=== PATIENT | female | born 1990 | race African-American/Black ===

== ENCOUNTER 2023-03-05 20:06 | Emergency (ER) | payer SELFPAY ==
[2023-03-05 20:09] VITALS: BP 142/89; PULSE 91; RESP 18; TEMP 36.6; O2SAT 97; BMI 34.2
--- NOTE | 2023-03-05 20:39 | ED.GENADULT ---
[facility] - General Adult General Date Seen: 03/05/23 Chief complaint: Abdominal Pain Stated complaint: lower abdomen pain Time Seen by Provider: 03/05/23 20:21 Source: patient Mode of arrival: ambulatory Limitations: no limitations History of Present Illness HPI narrative: Patient is a 32-year-old woman, new to our system who presents for evaluation of right-sided abdominal pain which has been present for the past almost week or so. She says a number of years ago she had problems with consistent nausea, ultimately was diagnosed with what sounds like H pylori treated for the out of the nausea resolved and she has been fine since then. Over the weekend she says she had pretty significant right lower abdominal pain associated with nausea no vomiting, no urinary symptoms, fever, constipation or diarrhea. She said the pain improved a little bit after the weekend, but has not entirely resolved. Appetite has been normal. She does not get regular menses, last 1 was over 90 days ago but this is not unusual for her. She said she had a loss in May and has not been significantly sexually active since then so she is not particularly concerned about , did not do a test at home. Denies abdominal surgeries. General health otherwise good. Does not smoke or drink. Related Data Home Medications Medication Instructions Recorded Confirmed No Known Home Medications 03/05/23 03/05/23 Allergies Allergy/AdvReac Type Severity Reaction Status Date / Time No Known Drug Allergies Allergy Verified 03/05/23 20:16 Review of Systems Status of ROS: Reports: 10 or more systems reviewed and unremarkable except as noted in History and below Exam Narrative: Exam Narrative: Vital signs as noted above. In general, an alert, well-appearing patient. Head: Normocephalic, atraumatic. Eyes: Pupils are equal reactive. Extraocular movements are full. Conjunctivae are normal. ENT: Mucous membranes are moist. Neck: Supple without lymphadenopathy. Heart: Regular rate and rhythm. No murmur or rub. Lungs: Clear bilaterally. No increased work of breathing, crackles or wheezes. Abdomen: Soft and nondistended. Mild right lower abdominal tenderness without rebound guarding or rigidity. Extremities: Well perfused. No edema. No calf tenderness. Pulses intact. Neurologic: Patient is alert and oriented to person and place. Speech is fluent. Face is symmetric. Moves all extremities equally. Affect: Normal. Skin: Warm and dry. Well perfused. Const: Vital Signs, click to edit/add: Vital Signs - 24 hr 03/05/23 20:09 Temperature 97.8 F Pulse Rate [Pulse Oximeter] 91 Respiratory Rate 18 Blood Pressure [Ri ght Upper Arm] 142/89 H Pulse Oximetry 97 Oxygen Delivery Me thod Room Air Documenting provider has reviewed patient's vital signs: yes Course Course ED Course: Considering duration of symptoms, I think it makes most sense to start with some labs, urine, rule out . Surgical causes such as appendicitis are not entirely ruled out although thought to be less likely overall. Labs notable for normal white blood cell count and hemoglobin, normal CRP, normal metabolic panel. LFTs normal. Urinalysis was negative, test was negative. CT scan was ordered to rule out unlikely possibilities of appendicitis, gallbladder disease, ordered to evaluate for possible ovarian pathology such as cyst. This is read by Radiology as follows:IMPRESSION: No acute intra-abdominal/pelvic abnormality, including appendicitis as questioned. Tiny right corpus luteal cyst which could be a source of pain. I discussed all these findings with the patient. At this time, etiology of pain is not entirely known although may be related to this ovarian cyst if it is currently involuting. No evidence of appendicitis, cholecystitis, kidney stone, inflammatory bowel disease, colitis or other abnormalities. She would like to have some Zofran at home for nausea. Would recommend primary care follow-up next week for recheck. Return at any time for acute worsening or new symptoms such as fever or vomiting. Vital Signs Vital signs: Initial Vital Signs Temperature 97.8 F 03/05/23 20:09 Temperature Source Temporal Artery Scan 03/05/23 20:09 Pulse Rate 91 03/05/23 20:09 Respiratory Rate 18 03/05/23 20:09 Blood Pressure 142/89 H 03/05/23 20:09 Blood Pressure Mean 106 H 03/05/23 20:09 Pulse Oximetry 97 03/05/23 20:09 Oxygen Delivery Method Room Air 03/05/23 20:09 Vital Signs Temperature 97.8 F 03/05/23 20:09 Pulse Rate 91 03/05/23 20:09 Respiratory Rate 18 03/05/23 20:09 Blood Pressure 142/89 H 03/05/23 20:09 Pulse Oximetry 97 03/05/23 20:09 Oxygen Delivery Method Room Air 03/05/23 20:09 Temperature 97.8 F 03/05/23 20:09 Pulse Rate 91 03/05/23 20:09 Respiratory Rate 18 03/05/23 20:09 Blood Pressure 142/89 H 03/05/23 20:09 Pulse Oximetry 97 03/05/23 20:09 Oxygen Delivery Method Room Air 03/05/23 20:09 Medical Decision Making Lab Data Labs: Lab Results 03/05/23 03/05/23 Range/Units 20:45 20:52 WBC 6.48 (4.50-11.00) K/uL RBC 4.32 (4.00-5.20) m/uL Hgb 12.5 (12.0-16.0) gm/dL Hct 37.4 (33.0-51.0) % MCV 87 (80-100) fL MCH 29 (26-34) pg MCHC 33 (32-36) gm/dL RDW Coeff of [place] 13.6 (11.5-15.5) % Plt Count 263 (140-440) K/uL Neut % (Auto) 57.1 (42.0-72.0) % Lymph % (Auto) 34.3 (20-44) % [place] % (Auto) 7.1 (0.0-11.0) % Eos % (Auto) 0.8 (0.0-7.0) % Baso % (Auto) 0.5 (0.0-3.0) % Neut # (Auto) 3.71 (1.7-7.0) K/uL Lymph # (Auto) 2.22 (0.90-2.90) K/uL [place] # (Auto) 0.50 (0.00-0.90) K/UL Eos # (Auto) 0.05 (0.00-0.50) K/uL Baso # (Auto) 0.03 (0.00-0.30) K/uL Abs Immat Gran (auto) 0.01 (0.00-0.30) K/uL Imm/Tot Granulo (auto) 0.2 % Sodium 138 (135-149) mmol/L Potassium 4.0 (3.6-5.1) mmol/L Chloride 108 (96-114) mmol/L Carbon Dioxide 22 (20-32) mmol/L Anion Gap 8 (7-15) mEq/L BUN 14 (5-24) mg/dL Creatinine 0.7 (0.5-1.5) mg/dL Estimated Creat Clear 91.25 Estimated GFR 118 ml/min Glucose 96 (60-115) mg/dL Calcium 9.2 (8.4-10.6) mg/dL Total Bilirubin 0.3 (0.1-1.5) mg/dL Direct Bilirubin 0.0 (0.0-0.5) mg/dL AST 22 (12-35) U/L ALT 20 (4-35) U/L Alkaline Phosphatase 53 (40-150) U/L C-Reactive Protein 0.7 (0.5-1.0) mg/dL Total Protein 7.5 (6.0-8.3) g/dL Albumin 4.3 (3.3-5.0) g/dL Urine Color Dark yellow (Yellow) Urine Appearance Clear (Clear) Urine pH 5.5 (5.0-8.5) Ur Specific [place] >= 1.030 (1.000-1.030) Urine Protein Negative (Negative) Urine Glucose (UA) Negative (Negative) Urine Ketones Negative (Negative) Urine Blood Negative (Negative) Urine Nitrite Negative (Negative) Urine Bilirubin Negative (Negative) Urine Urobilinogen 0.2 (0.2-1.0) Ur Leukocyte Esterase Negative (Negative) Urine RBC 0-2 (0-2) Urine WBC 0-2 (0-5) Ur Squamous Epith Cells Few (None-Few) Urine Bacteria None (None) Urine Mucus Few A (None) Urine HCG, Qual Negative (Negative) Discharge Plan Discharge Clinical Impression: Abdominal pain, Cyst of right ovary Patient Disposition: Home, Self-Care Condition: Stable Instructions: Ovarian Cyst (ED), Abdominal Pain (ED) Additional Instructions: Ibuprofen and/or Tylenol if needed. Primary care follow-up next week for recheck, to schedule. Return to the ER at any time for acute worsening, severe pain, fevers, vomiting or other significant changes. Zofran if needed for nausea. Prescriptions: No Action No Known Home Medications Follow Up/Referrals: Provider,Not a Local [Primary Care Provider] - Stand Alone Forms: [employer] Info Instructions
[2023-03-05 20:51] LABS: Appearance Urine Clear (Clear); Bilirubin Urine Negative (Negative); Blood Urine Negative (Negative); Color Urine Dark yellow (Yellow); Glucose Urine Negative (Negative); Ketones Urine Negative (Negative); Leukocyte Esterase Urine Negative (Negative); Nitrite Urine Negative (Negative); Protein Urine Negative (Negative); Specific Gravity Urine >= 1.030 (1.000-1.030); Urobilinogen Urine 0.2 (0.2-1.0); pH Urine 5.5 (5.0-8.5)
[2023-03-05 20:59] LABS: RBC Urine 0-2 (0-2); Squamous Epithelial Cell Urine Few (None-Few); WBC Urine 0-2 (0-5)
[2023-03-05 20:59] LABS: Basophils Absolute Auto 0.03 K/uL (0.00-0.30); Basophils Percent Auto 0.5 % (0.0-3.0); Eosinophils Absolute Auto 0.05 K/uL (0.00-0.50); Eosinophils Percent Auto 0.8 % (0.0-7.0); Hematocrit 37.4 % (33.0-51.0); Hemoglobin* 12.5 gm/dL (12.0-16.0); Immature Granulocytes Abs Auto 0.01 K/uL (0.00-0.30); Immature Granulocytes Pct Auto 0.2 %; Lymphocytes Absolute Auto 2.22 K/uL (0.90-2.90); Lymphocytes Percent Auto 34.3 % (20-44); Mean Corpuscular HGB Conc 33 gm/dL (32-36); Mean Corpuscular Hemoglobin 29 pg (26-34); Mean Corpuscular Volume 87 fL (80-100); Monocytes Percent Auto 7.1 % (0.0-11.0); Neutrophils Absolute Auto 3.71 K/uL (1.7-7.0); Neutrophils Percent Auto 57.1 % (42.0-72.0); Platelet Count* 263 K/uL (140-440); RDW Coefficient of Variation % 13.6 % (11.5-15.5); Red Blood Count 4.32 m/uL (4.00-5.20); White Blood Count* 6.48 K/uL (4.50-11.00)
[2023-03-05 21:00] LABS: Mucus Urine Few
[2023-03-05 21:00] LABS: Slide Review Reflex No
[2023-03-05 21:14] LABS: Chloride* 108 mmol/L (96-114)
[2023-03-05 21:14] LABS: Ur HCG Qualitative* Negative (Negative)
[2023-03-05 21:15] LABS: Albumin* 4.3 g/dL (3.3-5.0); Sodium* 138 mmol/L (135-149)
[2023-03-05 21:17] LABS: Creatinine* 0.7 mg/dL (0.5-1.5); Est. Creatinine Clearance* 91.25; Estimated Glomerular Filt Rate 118 ml/min
[2023-03-05 21:18] LABS: Alanine Aminotransferase* 20 U/L (4-35); Alkaline Phosphatase* 53 U/L (40-150); Anion Gap 8 mEq/L (7-15); Aspartate Amino Transferase* 22 U/L (12-35); Bilirubin Total* 0.3 mg/dL (0.1-1.5); Blood Urea Nitrogen* 14 mg/dL (5-24); Carbon Dioxide* 22 mmol/L (20-32); Glucose* 96 mg/dL (60-115); Total Protein* 7.5 g/dL (6.0-8.3)
[2023-03-05 21:19] LABS: Calcium* 9.2 mg/dL (8.4-10.6)
[2023-03-05 21:21] LABS: C Reactive Protein* 0.7 mg/dL (0.5-1.0)
--- NOTE | 2023-03-05 21:26 | CRLHL7_ITS ---
For Patients: As a result of the Century Cures Act, medical imaging exams and procedure reports are released immediately into your electronic medical record. You may view this report before your referring provider. If you have questions, please contact your health care provider. INDICATION: Right lower quadrant pain x1 week. TECHNIQUE: CT abdomen and pelvis acquired with 92 cc Isovue 370 IV contrast. COMPARISON: None. FINDINGS: Lower chest: Unremarkable. Liver: Unremarkable. Normal in size and attenuation. No suspicious masses. Gallbladder and bile ducts: Unremarkable. No stones or inflammation. No biliary dilatation. Pancreas: Unremarkable. No mass or inflammation. Spleen: Unremarkable. Normal in size. No masses. Adrenal glands: Unremarkable. No nodules. Kidneys: Unremarkable. No suspicious masses, stones, or hydronephrosis. GI tract: Unremarkable. Normal in caliber. No sign of mass or inflammation. Normal appendix. Vasculature: Abdominal aorta is normal in caliber. Mesenteric arteries are patent. Lymph nodes: No lymphadenopathy. Peritoneum/Abdominal Wall: Unremarkable. No sign of mass or infiltration. No free air or significant free fluid. Pelvis: Incidental tiny right corpus luteal cyst. Bones: Unremarkable for age. IMPRESSION: No acute intra-abdominal/pelvic abnormality, including appendicitis as questioned. Tiny right corpus luteal cyst which could be a source of pain. Please note that all CT scans at this facility use dose modulation, iterative reconstruction, and/or weight-based dosing when appropriate to reduce radiation dose to as low as reasonably achievable. Dictated by Keyur Valle MD @ 03/05/2023 10:24:06 PM (Electronically Signed)
[2023-03-05 22:57] VITALS: BP 140/90; PULSE 88; RESP 16; TEMP 36.6; O2SAT 97
== END 2023-03-05 23:02 | disposition home or self-care (01) ==
PROVIDERS: Emergency Provider Emergency Medicine
DX: R10.9 Unspecified abdominal pain (principal); N83.291 Other ovarian cyst, right side
CPT/HCPCS: 36415; 74177; 80048; 80076; 81001; 81025; 85025; 86140; 99284; Q9967

== ENCOUNTER 2023-06-24 20:35 | Emergency (ER) | payer OTHER, SELFPAY ==
--- NOTE | 2023-06-24 20:51 | CRLHL7_ITS ---
For Patients: As a result of the Cures Act, medical imaging exams and procedure reports are released immediately into your electronic medical record. You may view this report before your referring provider. If you have questions, please contact your health care provider. INDICATION: Right-sided chest pain, trauma TECHNIQUE: Chest radiographs, two views. COMPARISON: None. FINDINGS: Lines/Tubes/Devices: None. Mediastinum: Normal cardiac silhouette. Lungs: No focal consolidation. Airways: The trachea remains midline. Pleura: No pleural effusions or pneumothorax. Bones: No acute osseous abnormalities. Upper Abdomen: Unremarkable. IMPRESSION: No acute cardiopulmonary process. No acute displaced rib fractures, pleural effusions or pneumothorax. Dictated by Alan Caballero MD @ 06/24/2023 9:50:05 PM (Electronically Signed)
[2023-06-24 20:52] VITALS: BP 120/73; PULSE 79; RESP 20; TEMP 36.6; O2SAT 98; BMI 32.9
--- NOTE | 2023-06-24 21:42 | ED.GENADULT ---
HPI - General Adult General Chief complaint: Rib Pain Stated complaint: Hit in ribs by machine at work Time Seen by Provider: 06/24/23 21:17 History of Present Illness HPI narrative: This 33-year-old female comes in reporting an injury that occurred at work earlier today. She states that there was a tube that swelling out from a machine and hit her in the right anterior lower ribs. She states that she has some discomfort when taking a deep breath and with certain movements. Related Data Home Medications Medication Instructions Recorded Confirmed No Known Home Medications 03/05/23 03/05/23 Allergies Allergy/AdvReac Type Severity Reaction Status Date / Time No Known Drug Allergies Allergy Verified 03/05/23 20:16 Review of Systems Status of ROS: Reports: 10 or more systems reviewed and unremarkable except as noted in History and below Narrative: Constitutional: No fevers, no weight gain or loss. Eyes: No discharge. No vision changes. HENT: No congestion, no sore throat, no ear pain. Cardiovascular: No chest pain, no palpitations. Respiratory: No shortness of breath, no wheezes, no cough. Right lower anterior rib pain when taking a deep breath. Gastrointestinal: No abdominal pain, no vomiting, no diarrhea. Genitourinary: No dysuria, no hematuria. Musculoskeletal: Normal range of motion. Skin: No rashes, no pruritis. Neurological: No dizziness, weakness, sensory change, speech change. Endo/Heme/Allergies: No bruising or bleeding. No polydipsia. Pysch: no suicidality, no anxiety, no insomnia. All other systems reviewed and are negative. Exam Narrative: Exam Narrative: Constitutional: Well-developed, well-nourished, no acute distress. HEENT: Normocephalic, atraumatic. Neck: Normal range of motion. Nontender. Supple. Heart: Regular. No murmurs. Normal rate. Intact distal pulses. Lungs: Clear to auscultation. No chest discomfort. No wheezes, rhonchi, or rales. Chest: Mild erythema without other skin injury in the left lower anterior ribs. Tenderness when palpating in this area. Abdomen: Normal bowel sounds. Nontender. No rebound tenderness. Genitalia: Deferred. Back: No midline tenderness. Normal range of motion. Extremities: Normal range of motion. No injury. Skin: Intact. No rash. Warm. No erythema or pallor. Neurologic: No altered sensation. No weakness. Alert and oriented. Psychiatric: No suicidality. No anxiety or depression. No insomnia. Nursing notes and vitals signs are reviewed. Const: Vital Signs, click to edit/add: Vital Signs - 24 hr 06/24/23 20:52 Temperature 97.9 F Pulse Rate [Pulse Oximeter] 79 Respiratory Rate 20 Blood Pressure [Le ft Upper Arm] 120/73 Pulse Oximetry 98 Oxygen Delivery Me thod Room Air Course Vital Signs Vital signs: Initial Vital Signs Temperature 97.9 F 06/24/23 20:52 Temperature Source Temporal Artery Scan 06/24/23 20:52 Pulse Rate 79 06/24/23 20:52 Pulse Rhythm Regular 06/24/23 20:52 Respiratory Rate 20 06/24/23 20:52 Blood Pressure 120/73 06/24/23 20:52 Blood Pressure Mean 88 06/24/23 20:52 Blood Pressure Position Sitting 06/24/23 20:52 Pulse Oximetry 98 06/24/23 20:52 Oxygen Delivery Method Room Air 06/24/23 20:52 Vital Signs Temperature 97.9 F 06/24/23 20:52 Pulse Rate 79 06/24/23 20:52 Respiratory Rate 20 06/24/23 20:52 Blood Pressure 120/73 06/24/23 20:52 Pulse Oximetry 98 06/24/23 20:52 Oxygen Delivery Method Room Air 06/24/23 20:52 Temperature 97.9 F 06/24/23 20:52 Pulse Rate 79 06/24/23 20:52 Respiratory Rate 20 06/24/23 20:52 Blood Pressure 120/73 06/24/23 20:52 Pulse Oximetry 98 06/24/23 20:52 Oxygen Delivery Method Room Air 06/24/23 20:52 Medical Decision Making MDM Narrative Medical decision making narrative: This patient has an injury of her right ribs that occurred at work earlier today. The chest x-ray is obtained and returns without any evidence of pneumothorax or rib fracture by my review. Radiology report is pending. The patient is reassured with these findings and is okay to return home. She did receive a prescription for Toradol from the [employer] machine. Discharge Plan Discharge Prescriptions: No Action No Known Home Medications Follow Up/Referrals: Provider,Not a Local [Primary Care Provider] -
== END 2023-06-24 22:05 | disposition home or self-care (01) ==
PROVIDERS: Emergency Provider Emergency Medicine Emergency Medical Services
DX: S20.211A Contusion of right front wall of thorax, initial encounter (principal); W31.89XA Contact with other specified machinery, initial encounter; Y99.0 Civilian activity done for income or pay
CPT/HCPCS: 71046; 99283; 99284

== ENCOUNTER 2023-10-15 14:32 | Emergency (ER) | payer OTHER, SELFPAY ==
[2023-10-15 14:45] VITALS: BP 116/79; PULSE 68; RESP 16; TEMP 36.9; O2SAT 98; BMI 32.2
--- NOTE | 2023-10-15 14:54 | ED_ITS ---
<Statement entered by Misael Haynes MD - 10/15/23 23:48> this patient was cared for by Blas Kingston and Edita (not Dr Haynes) HPI - Psych General Chief Complaint: Psychiatric Problem/Disorder <Kirk Nichols MD - Last Filed: 10/15/23 14:56> Stated Complaint: mental health <Kirk Nichols MD - Last Filed: 10/15/23 14:56> Time Seen by Provider: 10/15/23 14:34 <Kirk Nichols MD - Last Filed: 10/15/23 14:56> History of Present Illness HPI Narrative: Patient is a 33-year-old woman who is feeling more depressed and anxious than normal. She has been feeling this way for the last several weeks but is worsened today. She does smoke marijuana regularly but has had no change in her consumption. She has not been drinking and is not injured. She denies any street drug use. She states that she moved here from [place] within the last year and had a miscarriage and her sister and her mother both . She has been feeling numb blue ever since but things seem to be getting worse. She has no overt plan of harming herself. She is in a safe environment. <Kirk Nichols MD - Last Filed: 10/15/23 14:56> Related Data Home Medications: Home Medications Medication Instructions Recorded Confirmed No Known Home Medications 03/05/23 10/15/23 <Kirk Nichols MD - Last Filed: 10/15/23 14:56> Allergies/Adverse Reactions: Allergies Allergy/AdvReac Type Severity Reaction Status Date / Time No Known Drug Allergies Allergy Verified 10/15/23 14:49 <Kirk Nichols MD - Last Filed: 10/15/23 14:56> Review of Systems Status of ROS: Reports: 10 or more systems reviewed and unremarkable except as noted in History and below <Kirk Nichols MD - Last Filed: 10/15/23 14:56> PFSH PFS Social History: Social History Smoking Status: Never smoker Do you use any of these nicotine containing products: None Second hand tobacco smoke exposure: No How often do you have a drink containing alcohol: monthly or less How many standard drinks containing alcohol do you have on a typical day: 1 or 2 AUDIT-C Alcohol total score: 1 Non-prescribed substance use: marijuana (any form) Non-prescribed substance use details: varied usage service: No <Kirk Nichols MD - Last Filed: 10/15/23 14:56> Exam Narrative: Exam Narrative: EXAM GENERAL: Patient appears comfortable and well. EYES: No scleral icterus. LYMPH: No supraclavicular or cervical lymphadenopathy. SKIN: Visible skin seen during exam normal or with benign process only. EXT: No dependent lower extremity pedal edema. HEART: Regular rate and rhythm with no murmurs, rubs, or gallops. LUNGS: Clear to auscultation bilaterally with no crackles or wheezes. ABD: Soft, non tender, non distended. PSYCH: Good eye contact, speech is not pressured. <Kirk Nichols MD - Last Filed: 10/15/23 14:56> Const: Vital Signs, click to edit/add: Vital Signs - 24 hr 10/15/23 14:45 Temperature 98.5 F Pulse Rate [Pulse Oximeter] 68 Respiratory Rate 16 Blood Pressure [Ri ght Upper Arm] 116/79 Pulse Oximetry 98 Oxygen Delivery Me thod Room Air <Kirk Nichols MD - Last Filed: 10/15/23 14:56> Vital Signs, click to edit/add: Vital Signs - 24 hr 10/15/23 14:45 Temperature 98.5 F Pulse Rate [Pulse Oximeter] 68 Respiratory Rate 16 Blood Pressure [Ri ght Upper Arm] 116/79 Pulse Oximetry 98 Oxygen Delivery Me thod Room Air <Elzbieta Kohler MD - Last Filed: 10/15/23 18:42> Course Course ED Course: Patient takes no home medications. I did send off standard laboratory studies will ask for mental health assessment. <Kirk Nichols MD - Last Filed: 10/15/23 14:56> Vital Signs Vital signs: Initial Vital Signs Temperature 98.5 F 10/15/23 14:45 Temperature Source Temporal Artery Scan 10/15/23 14:45 Pulse Rate 68 10/15/23 14:45 Pulse Rhythm Regular 10/15/23 14:45 Pulse Strength 3+ Normal 10/15/23 14:45 Respiratory Rate 16 10/15/23 14:45 Blood Pressure 116/79 10/15/23 14:45 Blood Pressure Mean 91 10/15/23 14:45 Blood Pressure Position Sitting 10/15/23 14:45 Pulse Oximetry 98 10/15/23 14:45 Oxygen Delivery Method Room Air 10/15/23 14:45 Vital Signs Temperature 98.5 F 10/15/23 14:45 Pulse Rate 68 10/15/23 14:45 Respiratory Rate 16 10/15/23 14:45 Blood Pressure 116/79 10/15/23 14:45 Pulse Oximetry 98 10/15/23 14:45 Oxygen Delivery Method Room Air 10/15/23 14:45 Temperature 98.5 F 10/15/23 14:45 Pulse Rate 68 10/15/23 14:45 Respiratory Rate 16 10/15/23 14:45 Blood Pressure 116/79 10/15/23 14:45 Pulse Oximetry 98 10/15/23 14:45 Oxygen Delivery Method Room Air 10/15/23 14:45 <Krik Nichols MD - Last Filed: 10/15/23 14:56> Initial Vital Signs Temperature 98.5 F 10/15/23 14:45 Temperature Source Temporal Artery Scan 10/15/23 14:45 Pulse Rate 68 10/15/23 14:45 Pulse Rhythm Regular 10/15/23 14:45 Pulse Strength 3+ Normal 10/15/23 14:45 Respiratory Rate 16 10/15/23 14:45 Blood Pressure 116/79 10/15/23 14:45 Blood Pressure Mean 91 10/15/23 14:45 Blood Pressure Position Sitting 10/15/23 14:45 Pulse Oximetry 98 10/15/23 14:45 Oxygen Delivery Method Room Air 10/15/23 14:45 Vital Signs Temperature 98.5 F 10/15/23 14:45 Pulse Rate 68 10/15/23 14:45 Respiratory Rate 16 10/15/23 14:45 Blood Pressure 116/79 10/15/23 14:45 Pulse Oximetry 98 10/15/23 14:45 Oxygen Delivery Method Room Air 10/15/23 14:45 Temperature 98.5 F 10/15/23 14:45 Pulse Rate 68 10/15/23 14:45 Respiratory Rate 16 10/15/23 14:45 Blood Pressure 116/79 10/15/23 14:45 Pulse Oximetry 98 10/15/23 14:45 Oxygen Delivery Method Room Air 10/15/23 14:45 <Elzbieta Kohler MD - Last Filed: 10/15/23 18:42> MDM - Psych MDM Narrative Medical decision making narrative: Patient was signed out by previous physician Dr. Nichols. Patient remained stable in the emergency room. She was assessed by [facility] for depression and anxiety as well as associated mild PTSD. As patient has moved here from [place] she does not have a lot of friends and has had a lot of loss this past year with the of her mother and sister. At this time she has no plan or intent to commit suicide. 1. Depression anxiety-patient will be discharged home. She has a appointment for medication management on ThursdayOctober 19 and therapy on ThursdayOctober 20. [facility] has also supplied day treatment options for her. She does contract for safety. Does agree to return to the emergency room for worsening symptoms. We had an extensive discussion about her me to be involved in the community. She agrees stating that being home alone is really what is challenging for her. 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 We have provided the number for community [employer] and recreation as they do need volunteers to help with the food shelf , etc. additionally would recommend looking at the [facility] website as they do have a lot of programs open to the public. Finally, have given her the number for 1 of our local paramedics so that she may participate in a ride along to see if this is something that she would like to do. 2. Disposition-home at this time. Contracts for safety. Will return for any worsening symptoms. <Elzbieta Kohler MD - Last Filed: 10/15/23 18:42> Lab Data Attestation: I reviewed the patient's lab results. <Elzbieta Kohler MD - Last Filed: 10/15/23 18:42> Labs: Lab Results 10/15/23 10/15/23 Range/Units 14:54 15:08 WBC 4.33 L (4.50-11.00) K/uL RBC 4.05 (4.00-5.20) m/uL Hgb 11.9 L (12.0-16.0) gm/dL Hct 36.1 (33.0-51.0) % MCV 89 (80-100) fL MCH 29 (26-34) pg MCHC 33 (32-36) gm/dL RDW Coeff of Fahad 13.4 (11.5-15.5) % Plt Count 226 (140-440) K/uL Neut % (Auto) 44.0 (42.0-72.0) % Lymph % (Auto) 44.8 H (20-44) % Parmer % (Auto) 8.8 (0.0-11.0) % Eos % (Auto) 1.2 (0.0-7.0) % Baso % (Auto) 0.7 (0.0-3.0) % Neut # (Auto) 1.90 (1.7-7.0) K/uL Lymph # (Auto) 1.90 (0.90-2.90) K/uL Parmer # (Auto) 0.40 (0.00-0.90) K/UL Eos # (Auto) 0.10 (0.00-0.50) K/uL Baso # (Auto) 0.00 (0.00-0.30) K/uL Abs Immat Gran (auto) 0.00 (0.00-0.30) K/uL Imm/Tot Granulo (auto) 0.5 % Sodium 138 (135-149) mmol/L Potassium 4.1 (3.6-5.1) mmol/L Chloride 108 (96-114) mmol/L Carbon Dioxide 25 (20-32) mmol/L Anion Gap 5 L (7-15) mEq/L BUN 17 (5-24) mg/dL Creatinine 0.6 (0.5-1.5) mg/dL Estimated Creat Clear 105.48 Estimated GFR 121 ml/min Glucose 94 (60-115) mg/dL Calcium 8.8 (8.4-10.6) mg/dL Total Bilirubin 0.4 (0.1-1.5) mg/dL AST 19 (12-35) U/L ALT 12 (4-35) U/L Alkaline Phosphatase 52 (40-150) U/L Total Protein 7.0 (6.0-8.3) g/dL Albumin 4.0 (3.3-5.0) g/dL Salicylates < 1.0 L (1.0-10) mg/dL Urine Opiates Screen Negative (Negative) Ur Oxycodone Screen Negative (Negative) Urine Methadone Screen Negative (Negative) Acetaminophen < 10.0 L (10.0-30.0) ug/mL Ur Barbiturates Screen Negative (Negative) U Tricyclic Antidepress Negative (Negative) Ur Phencyclidine Scrn Negative (Negative) Ur Amphetamines Screen Negative (Negative) U Methamphetamines Scrn Negative (Negative) U Benzodiazepines Scrn Negative (Negative) Urine Cocaine Screen Negative (Negative) U Marijuana (THC) Screen POSITIVE A (Negative) Ur Drug Screen Comment See Note Ethyl Alcohol < 0.01 L (0.01-0.03) % <Kirk Nichols MD - Last Filed: 10/15/23 14:56> Lab Results 10/15/23 10/15/23 Range/Units 14:54 15:08 WBC 4.33 L (4.50-11.00) K/uL RBC 4.05 (4.00-5.20) m/uL Hgb 11.9 L (12.0-16.0) gm/dL Hct 36.1 (33.0-51.0) % MCV 89 (80-100) fL MCH 29 (26-34) pg MCHC 33 (32-36) gm/dL RDW Coeff of Fahad 13.4 (11.5-15.5) % Plt Count 226 (140-440) K/uL Neut % (Auto) 44.0 (42.0-72.0) % Lymph % (Auto) 44.8 H (20-44) % Parmer % (Auto) 8.8 (0.0-11.0) % Eos % (Auto) 1.2 (0.0-7.0) % Baso % (Auto) 0.7 (0.0-3.0) % Neut # (Auto) 1.90 (1.7-7.0) K/uL Lymph # (Auto) 1.90 (0.90-2.90) K/uL Parmer # (Auto) 0.40 (0.00-0.90) K/UL Eos # (Auto) 0.10 (0.00-0.50) K/uL Baso # (Auto) 0.00 (0.00-0.30) K/uL Abs Immat Gran (auto) 0.00 (0.00-0.30) K/uL Imm/Tot Granulo (auto) 0.5 % Sodium 138 (135-149) mmol/L Potassium 4.1 (3.6-5.1) mmol/L Chloride 108 (96-114) mmol/L Carbon Dioxide 25 (20-32) mmol/L Anion Gap 5 L (7-15) mEq/L BUN 17 (5-24) mg/dL Creatinine 0.6 (0.5-1.5) mg/dL Estimated Creat Clear 105.48 Estimated GFR 121 ml/min Glucose 94 (60-115) mg/dL Calcium 8.8 (8.4-10.6) mg/dL Total Bilirubin 0.4 (0.1-1.5) mg/dL AST 19 (12-35) U/L ALT 12 (4-35) U/L Alkaline Phosphatase 52 (40-150) U/L Total Protein 7.0 (6.0-8.3) g/dL Albumin 4.0 (3.3-5.0) g/dL Salicylates < 1.0 L (1.0-10) mg/dL Urine Opiates Screen Negative (Negative) Ur Oxycodone Screen Negative (Negative) Urine Methadone Screen Negative (Negative) Acetaminophen < 10.0 L (10.0-30.0) ug/mL Ur Barbiturates Screen Negative (Negative) U Tricyclic Antidepress Negative (Negative) Ur Phencyclidine Scrn Negative (Negative) Ur Amphetamines Screen Negative (Negative) U Methamphetamines Scrn Negative (Negative) U Benzodiazepines Scrn Negative (Negative) Urine Cocaine Screen Negative (Negative) U Marijuana (THC) Screen POSITIVE A (Negative) Ur Drug Screen Comment See Note Ethyl Alcohol < 0.01 L (0.01-0.03) % <Elzbieta Kohler MD - Last Filed: 10/15/23 18:42> Discharge Plan Discharge Clinical Impression: Depression <Kirk Nichols MD - Last Filed: 10/15/23 14:56> Patient Disposition: Home, Self-Care <Kirk Nichols MD - Last Filed: 10/15/23 14:56> Additional Instructions: See this safety plan which includes an appointment next Thursday for medication management and on Thursday for therapy. There is also additional treatment options listed. Please return to the emergency room for worsening symptoms and thoughts about hurting herself. EMT contact is Magaly Christianson. She can be reached at [phone]. Magaly can help guide you on a ride along in the ambulance and possibly help refer you to other EMT classes. See the [facility] website for free programs or classes for the public. [facility] [employer] [phone]. Website is also available. They are always looking for volunteers to help with the food shelf or other programs in the area. <Kirk Nichols MD - Last Filed: 10/15/23 14:56> Prescriptions: No Action No Known Home Medications <Kirk Nichols MD - Last Filed: 10/15/23 14:56> Follow Up/Referrals: Provider,Not a Local [Primary Care Provider] - <Kirk Nichols MD - Last Filed: 10/15/23 14:56> Stand Alone Forms: [id number] Info Instructions <Kirk Nichols MD - Last Filed: 10/15/23 14:56>
[2023-10-15 15:14] LABS: Basophils Percent Auto 0.7 % (0.0-3.0); Eosinophils Percent Auto 1.2 % (0.0-7.0); Hematocrit 36.1 % (33.0-51.0); Hemoglobin* 11.9 gm/dL (12.0-16.0); Immature Granulocytes Pct Auto 0.5 %; Lymphocytes Percent Auto 44.8 % (20-44); Mean Corpuscular HGB Conc 33 gm/dL (32-36); Mean Corpuscular Hemoglobin 29 pg (26-34); Mean Corpuscular Volume 89 fL (80-100); Monocytes Percent Auto 8.8 % (0.0-11.0); Platelet Count* 226 K/uL (140-440); RDW Coefficient of Variation % 13.4 % (11.5-15.5); Red Blood Count 4.05 m/uL (4.00-5.20); White Blood Count* 4.33 K/uL (4.50-11.00)
[2023-10-15 15:27] LABS: Chloride* 108 mmol/L (96-114); Potassium* 4.1 mmol/L (3.6-5.1); Sodium* 138 mmol/L (135-149)
[2023-10-15 15:29] LABS: Alkaline Phosphatase* 52 U/L (40-150); Aspartate Amino Transferase* 19 U/L (12-35); Bilirubin Total* 0.4 mg/dL (0.1-1.5); Blood Urea Nitrogen* 17 mg/dL (5-24); Carbon Dioxide* 25 mmol/L (20-32); Creatinine* 0.6 mg/dL (0.5-1.5); Est. Creatinine Clearance* 105.48; Estimated Glomerular Filt Rate 121 ml/min
[2023-10-15 15:30] LABS: Alanine Aminotransferase* 12 U/L (4-35); Anion Gap 5 mEq/L (7-15); Calcium* 8.8 mg/dL (8.4-10.6); Glucose* 94 mg/dL (60-115); Salicylate* < 1.0 mg/dL (1.0-10)
[2023-10-15 15:32] LABS: Slide Review Reflex No
[2023-10-15 15:38] LABS: Ethanol* < 0.01 % (0.01-0.03)
[2023-10-15 16:06] LABS: Acetaminophen* < 10.0 ug/mL (10.0-30.0)
[2023-10-15 16:45] LABS: Amphetamine Screen Urine Negative (Negative); Barbiturate Screen Urine Negative (Negative); Benzodiazepines Screen Urine Negative (Negative); Cannabinoid Screen Urine POSITIVE (Negative); Cocaine Screen Urine Negative (Negative); Methadone Screen Urine Negative (Negative); Methamphetamines Screen Urine Negative (Negative); Opiate Screen Urine Negative (Negative); Oxycodone Screen Urine Negative (Negative); Phencyclidine Screen Urine Negative (Negative); Tricyclic Antidepressant Urine Negative (Negative)
== END 2023-10-15 18:13 | disposition home or self-care (01) ==
PROVIDERS: Internal Medicine; Emergency Provider Family Medicine
DX: F32.A Depression, unspecified (principal); F41.8 Other specified anxiety disorders
CPT/HCPCS: 36415; 80053; 80143; 80179; 80306; 82077; 85025; 99283; 99284

== ENCOUNTER 2023-11-07 02:17 | Outpatient (CLI) | payer OTHER, SELFPAY | END 2023-11-07 02:18 | disposition home or self-care (01) | LOC: AMB 11-10 17:54 | PROVIDERS: Visit Provider Family Medicine | DX: R07.89 Other chest pain (principal) | CPT/HCPCS: A0425; A0427 ==

== ENCOUNTER 2023-11-07 03:03 | Emergency (ER) | payer OTHER, SELFPAY ==
--- NOTE | 2023-11-07 03:04 | ED.GENADULT ---
HPI - General Adult General Time Seen by Provider: 03:04 Date Seen: 11/07/23 Chief complaint: Anxiety Stated complaint: Anxiety Time Seen by Provider: 11/07/23 03:04 Source: patient, RN notes reviewed and old records reviewed Mode of arrival: ambulatory Limitations: no limitations History of Present Illness HPI narrative: 33-year-old female who comes in today with with chest pain. Patient reports she took her sertraline tonight with just a sip of water, shortly thereafter developed chest tightness radiating to her neck which also developed into a headache. She had nausea but no vomiting with this. She called EMS. She feels better now, chest pain is mostly resolved although she still has a headache. She has not previously had problems with her medication which was prescribed last week, she does note she is not eating anything for the past couple hours. Related Data Home Medications ?Medication ?Instructions ?Recorded ?Confirmed sertraline 50 mg tablet 50 mg PO DAILY 11/07/23 11/07/23 Allergies Allergy/AdvReac Type Severity Reaction Status Date / Time No Known Drug Allergies Allergy Verified 11/07/23 03:11 [facility] Social History Smoking Status: Never smoker Do you use any of these nicotine containing products: None Second hand tobacco smoke exposure: No How often do you have a drink containing alcohol: monthly or less How many standard drinks containing alcohol do you have on a typical day: 1 or 2 AUDIT-C Alcohol total score: 1 Non-prescribed substance use: marijuana (any form) Non-prescribed substance use details: varied usage service: No Exam Narrative: Exam Narrative: General: Well-developed and well-nourished, no acute distress Head: Atraumatic and normocephalic Eyes: Pupils are equal reactive, extraocular motions intact, conjunctiva clear ENT: External nose and ears are normal, posterior pharynx without erythema or exudate Neck: No midline cervical tenderness, full spontaneous range of motion the neck, trachea midline, no adenopathy Heart: Regular rate and rhythm no murmurs or thrills Lungs: Clear to auscultation bilaterally without wheezes or crackles Abdomen: Soft, nontender, nondistended with active bowel sounds Musculoskeletal: No tenderness, deformity, or edema Neurologic: Awake, alert, and oriented x3, no gross focal neurologic deficits, cranial nerves intact as tested Psych: Mood and affect are appropriate Skin: No rashes Const: Vital Signs, click to edit/add: Vital Signs - 24 hr 11/07/23 03:11 Temperature 99.2 F Pulse Rate [Pulse Oximeter] 74 Respiratory Rate 20 Blood Pressure [Ri ght Upper Arm] 117/80 Pulse Oximetry 98 Oxygen Delivery Me thod Room Air Course Course ED Course: Patient seen and examined, reviewed prior emergency department visit from October 14 when patient was seen and depression, at that time patient was scheduled for a mental health appointment on October 19 at 10:00 a.m., also a [facility] mental health appointment on October 20. Patient has been recently started on sertraline. She presents today with chest tightness going into the neck along with some nausea after taking her medication night. Brought in by EMS, given Ativan in route. Patient says symptoms are better now. Suspect reflux or pill esophagitis, esophageal spasm also possible. Patient will be given Maalox, Tylenol for headache and Zofran for nausea. If symptoms improve, I think at this time can for extensive testing. Patient is agreeable to this plan. Reevaluation(s) Time of Reevaluation #1: 04:20 Reevaluation #1: Patient recheck, she is feeling better and stable for discharge. Vital Signs Vital signs: Initial Vital Signs Temperature 99.2 F 11/07/23 03:11 Temperature Source Temporal Artery Scan 11/07/23 03:11 Pulse Rate 74 11/07/23 03:11 Pulse Rhythm Regular 11/07/23 03:11 Pulse Strength 3+ Normal 11/07/23 03:11 Respiratory Rate 20 11/07/23 03:11 Blood Pressure 117/80 11/07/23 03:11 Blood Pressure Mean 92 11/07/23 03:11 Blood Pressure Position Sitting 11/07/23 03:11 Pulse Oximetry 98 11/07/23 03:11 Oxygen Delivery Method Room Air 11/07/23 03:11 Vital Signs Temperature 99.2 F 11/07/23 03:11 Pulse Rate 74 11/07/23 03:11 Respiratory Rate 20 11/07/23 03:11 Blood Pressure 117/80 11/07/23 03:11 Pulse Oximetry 98 11/07/23 03:11 Oxygen Delivery Method Room Air 11/07/23 03:11 Temperature 99.2 F 11/07/23 03:11 Pulse Rate 74 11/07/23 03:11 Respiratory Rate 20 11/07/23 03:11 Blood Pressure 117/80 11/07/23 03:11 Pulse Oximetry 98 11/07/23 03:11 Oxygen Delivery Method Room Air 11/07/23 03:11 Medications Administered Medications: Generic Name Dose Route Start Last Admin Trade Name Justice PRN Reason Stop Dose Admin Acetaminophen 1,000 mg 11/07/23 03:24 11/07/23 03:54 Acetaminophen 500 Mg Tablet PO 11/07/23 03:25 1,000 mg ONCE ONE Administration Lidocaine/Aluminum/Magnesium/Simeth 15 ml 11/07/23 03:24 11/07/23 03:59 Mag Hydrox/Aluminum Hyd/Simeth 30 Ml Oral.Susp PO 11/07/23 03:25 15 ml ONCE ONE Administration Ondansetron HCl 4 mg 11/07/23 03:24 11/07/23 03:30 Ondansetron Odt 4 Mg Tab PO 11/07/23 03:25 4 mg ONCE ONE Administration Discharge Plan Discharge Clinical Impression: Headache, Atypical chest pain Patient Disposition: Home, Self-Care Condition: Stable Instructions: Noncardiac Chest Pain (ED) Additional Instructions: Taking medication with a glass of water and a little bit of food Activity Level: No Restrictions Discharge Diet: Regular Prescriptions: No Action sertraline 50 mg tablet 50 mg PO DAILY Follow Up/Referrals: Provider,Not a Local [Primary Care Provider] - Stand Alone Forms: MyHealth Info Instructions
[2023-11-07 03:11] VITALS: BP 117/80; PULSE 74; RESP 20; TEMP 37.3; O2SAT 98; BMI 31.8
[2023-11-07] MEDS: ONDANSETRON ODT 4 MG TAB PO (03:30)
[2023-11-07] MEDS: ACETAMINOPHEN 500 MG TABLET 1000 MG PO (03:54)
[2023-11-07] MEDS: MAG HYDROX/ALUMINUM HYD/SIMETH 30 ML ORAL.SUSP 15 ML PO (03:59)
== END 2023-11-07 04:29 | disposition home or self-care (01) ==
LOC: ED 03:36
PROVIDERS: Emergency Provider Family Medicine
DX: R51.9 Headache, unspecified (principal); R07.9 Chest pain, unspecified
CPT/HCPCS: 96374; 99283; A9270

== ENCOUNTER 2024-09-08 12:08 | Emergency (ER) | payer SELFPAY ==
--- OUTSIDE RECORDS SUMMARY | 2024-09-08 12:10 | XMS_ITS | Clinical Summary ---
Author Organization [facility] Address [facility] [place] [address] Care Team Providers Care [employer] Name Role Phone Lashaun Braun DO Primary Care Provider [phone] Allergies No known active allergies Medications naproxen (NAPROSYN) 500 mg tabletIndication s:Chronic right shoulder pain Take 1 Tablet (500 mg) by mouth every 12 hours if needed for Pain. 20 Tablet 1 12/07/2023 Active Active Problems No known active problems Encounters Date Type Department Care Team Description 07/21/2024 2:30 PM ALLOY WEIGHER Phone Office Visit [facility] [address] [place] [address] Toma Romero LICSW Phone Visit; [facility] Visit 07/21/2024 Travel 07/19/2024 1:30 PM ALLOY WEIGHER Office Visit [facility] [address] [place] [address] Toma Romero LICSW [facility] Visit 07/19/2024 Travel from Last 3 Months Social History Tobacco Use Types Packs/Day Years Used Date Smoking Tobacco: Never Smokeless Tobacco: Never Tobacco Cessation:Counseling Given: Not Answered Alcohol Use Standard Drinks/Week Comments Yes 0 (1 standard drink = 0.6 oz pur e alcohol) 1 time montly or less PHQ-2 Answer Date Recorded PHQ-2 TOTAL SCORE 5 10/30/2023 Social Connections Answer Date Recorded Do you often feel lonely or isolated from those around you? 4 10/30/2023 Financial Resource Strain Answer Date R ecorded Difficulty of Paying Living Expenses 1 10/30/2023 Difficulty of Paying Living Expenses 2 10/30/2023 Food Insecurity Answer Date Recorded Do you worry your food will run out before you are able to buy more? 2 10/30/2023 Transportation Needs Answer Date Record ed Does lack of transportation keep you from medica l appointments? 1 10/30/2023 Does lack of transportation keep you from work, meetings or getting things that you need? 2 10/30/2023 Housing Stability Answer Date Recorded What is your housing situation today? 1 10/30/2023 Utilities Answer Date Recorded Do you have trouble paying f or utilities (for example, heat, electricity, water, phone)? 1 10/30/2023 Comments No Sex and Gender Information Value Date Recorded Sex Assigned at Not on file Legal Sex Female 9:25 PM CDT Gender Identity Not on file Sexual Orientation Not on file Obstetrics History Last Filed Vital Signs Vital Sign Reading Time Taken Comments Blood Pressure 119/84 12/07/2023 3:25 PM CDT Pulse 76 12/07/2023 3:25 PM CDT Temperature 36.8 C (98.2 F) 02/27/2017 12:22 AM CDT Respiratory Rate 18 02/27/2017 12:22 AM CDT Oxygen Saturation 98% 02/27/2017 12:22 AM CDT Inhaled Oxygen Concentration - - Weight 78.9 kg (174 lb) 12/07/2023 3:25 PM CDT Height 157.5 cm (5' 2) 02/26/2017 9:28 PM CDT Body Mass Index 31.83 02/26/2017 9:28 PM CDT Plan of Treatment Health Maintenance Due Date Last Done Comments Tdap 2001 HIV for age 15-65 2005 Hepatitis C screening for ag e 18-79 2008 Tetanus booster 2010 Pap test for age 21-65 2011 BMI (ht and wt on same day) for age 18+ 02/26/2018 02/26/2017 COVID-19 vaccine series ( season) 2024 Influenza Vaccine (#1) 2024 Depression screening for age 12+ 10/29/2024 10/30/19 24 Pneumococcal series for age 6-49 Aged Out No longer eligible based on patient's age to complete this topic Care Teams [employer] Relationship Specialty Start Date End Date Lashaun Braun DO [address] [place], [place] [id number] PCP - General Family Practice 11/01/23
[2024-09-08 12:32] VITALS: BP 115/81; PULSE 71; RESP 20; TEMP 36.6; O2SAT 99; BMI 33.7
[2024-09-08 13:14] LABS: Strep A DNA Probe* NOT DETECTED (Not Detectd)
[2024-09-08 13:26] LABS: PCR FLU A Negative PCR FLU A (Negative); PCR FLU B Negative PCR FLU B (Negative); PCR RSV Negative PCR RSV (Negative); SARS PCR* Negative SARS-CoV-2 (Negative)
--- NOTE | 2024-09-08 16:01 | ED.GENADULT ---
HPI - General Adult General Time Seen by Provider: 16:01 Date Seen: 09/08/24 Chief complaint: Sore Throat Stated complaint: Chest pain, throat tightening, short of breath Time Seen by Provider: 09/08/24 15:46 Source: patient and RN notes reviewed Mode of arrival: ambulatory Limitations: no limitations History of Present Illness HPI narrative: This very pleasant 34-year-old female is coming in with concern of illness. Due to the volume in the acuity in the ED, I was able to tell her that her triple viral swab in her strep were negative. She started with an illness last week that started more with nausea and fatigue/weakness. She did not go to work Thursday through Thursday, basically just laid around. Had diminished oral intake. No fevers but felt sweaty and chilled. She then on Thursday started with sore throat and congestion, coughing. She has had a history of seasonal allergies but it is thought that this was an illness. She has not had any facial pain or dental pain but feels significant congestion. She has had significant sore throat, does hurt to swallow. The coughing has improved but when she takes a deep breath, will feel some chest pressure and some pleuritic type chest pain. Overall though the coughing has gotten better. She has no history of asthma. She states there is a chance of . She is not aware of any definite ill contacts, no recent travel. Patient has tried TheraFlu and Sudafed, helps for a while but than feels poorly again. Related Data Home Medications ?Medication ?Instructions ?Recorded ?Confirmed No Known Home Medications 09/08/24 09/08/24 Allergies Allergy/AdvReac Type Severity Reaction Status Date / Time No Known Drug Allergies Allergy Verified 11/07/23 03:11 Review of Systems Status of ROS: Reports: 6 or more systems reviewed and unremarkable except as noted in History and below [facility] Social History Smoking Status: Never smoker Do you use any of these nicotine containing products: None Second hand tobacco smoke exposure: No How often do you have a drink containing alcohol: monthly or less How many standard drinks containing alcohol do you have on a typical day: 1 or 2 AUDIT-C Alcohol total score: 1 Non-prescribed substance use: marijuana (any form) Non-prescribed substance use details: varied usage service: No Exam Const: Vital Signs, click to edit/add: Vital Signs - 24 hr 09/08/24 12:32 09/08/24 16:17 Temperature 98 F Pulse Rate [Pulse Oximeter] 71 70 Respiratory Rate 20 16 Blood Pressure [Ri ght Upper Arm] 115/81 126/87 Pulse Oximetry 99 98 Oxygen Delivery Me thod Room Air Room Air This 34-year-old female is alert, interactive, no apparent distress, sitting up on the bed in exam room 6. Pupils equal round reactive, sclera clear, anterior nares clear, can see the inferior turbinates in do look mildly erythematous and swollen but no significant drainage. No pain of face on percussion. TMs canals are normal, no evidence of infection. Oropharynx has normal soft palate and uvula, tonsils are about 1+, some erythema and erythema along the anterior tonsillar pillars but good oral airway tongue in oral mucosa is otherwise normal, dentition in good repair. Neck is supple, no adenopathy, no tenderness. Lungs are clear, good air entry, no wheezing or crackles, no tachypnea, no accessory muscle use. CV regular rate and rhythm, no murmur, normal S1-S2. Documenting provider has reviewed patient's vital signs: yes Course Course ED Course: Patient's triple viral swab and strep were negative. Her throat does look erythematous but I do not see any concerns at this time for any hypoxia, no tachypnea, no tachycardia, no evidence of any pharyngeal swelling that would signify peritonsillar abscess. Her tonsillar findings are symmetrical with some mild erythema but no definite exudates or significant enlargement. Could be early tonsillitis. Will look at chest x-ray, certainly does have some pleuritic findings in her history. Will do a troponin and EKG to rule out things like myocarditis or possible pericarditis complicating her possible viral illness. Will make sure of negative test prior to imaging. Reevaluation(s) Time of Reevaluation #1: 17:52 Reevaluation #1: Have reviewed reassuring labs, normal chest x-ray. Her white count is low, points to viral etiologies. She likely has viral pharyngitis, viral upper respiratory infection. We discussed ongoing outpatient management with [id number] medicines. She is to watch for worsening, increasing signs or symptoms of worsening illness, recheck if needed. Vital Signs Vital signs: Initial Vital Signs Temperature 98 F 09/08/24 12:32 Temperature Source Temporal Artery Scan 09/08/24 12:32 Pulse Rate 71 09/08/24 12:32 Respiratory Rate 20 09/08/24 12:32 Blood Pressure 115/81 09/08/24 12:32 Blood Pressure Mean 92 09/08/24 12:32 Pulse Oximetry 99 09/08/24 12:32 Oxygen Delivery Method Room Air 09/08/24 12:32 Vital Signs Temperature 98 F 09/08/24 12:32 Pulse Rate 71 09/08/24 12:32 Respiratory Rate 20 09/08/24 12:32 Blood Pressure 115/81 09/08/24 12:32 Pulse Oximetry 99 09/08/24 12:32 Oxygen Delivery Method Room Air 09/08/24 12:32 Temperature 98 F 09/08/24 12:32 Pulse Rate 70 09/08/24 16:17 Respiratory Rate 16 09/08/24 16:17 Blood Pressure 126/87 09/08/24 16:17 Pulse Oximetry 98 09/08/24 16:17 Oxygen Delivery Method Room Air 09/08/24 16:17 Medical Decision Making Lab Data Lab results reviewed: Yes I reviewed the patient's lab results Labs: Lab Results 09/08/24 09/08/24 09/08/24 Range/Units 12:35 16:23 17:00 WBC 3.65 L (4.50-11.00) K/uL RBC 4.41 (4.00-5.20) m/uL Hgb 12.7 (12.0-16.0) gm/dL Hct 39.4 (33.0-51.0) % MCV 89 (80-100) fL MCH 29 (26-34) pg MCHC 32 (32-36) gm/dL RDW Coeff of Fahad 13.4 (11.5-15.5) % Plt Count 226 (140-440) K/uL Neut % (Auto) 40.0 L (42.0-72.0) % Lymph % (Auto) 39.2 (20-44) % [place] % (Auto) 17.8 H (0.0-11.0) % Eos % (Auto) 2.5 (0.0-7.0) % Baso % (Auto) 0.5 (0.0-3.0) % Neut # (Auto) 1.50 L (1.7-7.0) K/uL Lymph # (Auto) 1.40 (0.90-2.90) K/uL [place] # (Auto) 0.60 (0.00-0.90) K/UL Eos # (Auto) 0.10 (0.00-0.50) K/uL Baso # (Auto) 0.00 (0.00-0.30) K/uL Abs Immat Gran (auto) 0.00 (0.00-0.30) K/uL Imm/Tot Granulo (auto) 0.0 % Sodium 139 (135-149) mmol/L Potassium 3.9 (3.6-5.1) mmol/L Chloride 105 (96-114) mmol/L Carbon Dioxide 25 (20-32) mmol/L Anion Gap 9 (7-15) mEq/L BUN 18 (5-24) mg/dL Creatinine 0.7 (0.5-1.5) mg/dL Estimated Creat Clear 89.56 Estimated GFR 116 ml/min Glucose 85 (60-115) mg/dL Calcium 9.3 (8.4-10.6) mg/dL Urine HCG, Qual Negative (Negative) SARS-CoV-2 (PCR) Negative SARS-CoV-2 (Negative) Influenza Type A (PCR) Negative PCR FLU A (Negative) Influenza Type B (PCR) Negative PCR FLU B (Negative) RSV (PCR) Negative PCR RSV (Negative) Group A Strep DNA NOT DETECTED (Not Detectd) POC Troponin I 0.00 L (0.01-0.04) ng/ml Imaging Data Chest x-ray: Attestation: I have reviewed the pertinent imaging results. My impression: I do not appreciate any acute cardiopulmonary pathology my preliminary review. Radiologist's impression: Patient: USHA HUBBARD Facility:?[facility] Patient ID:?[id number] Site Patient ID:?[id number]. Site :?1990 Study:?XRay-Chest 1 VIEW PORTABLE-09/08/2024 4:27:36 PM Ordering Physician:?Julius Vu Final Report: INDICATION: Cough, pleuritic chest pain. TECHNIQUE: Chest 1 view. COMPARISON: None. FINDINGS: Unremarkable cardiomediastinal contours. No lung consolidation. No sign of pleural effusion. No pneumothorax. No acute osseous or soft tissue findings. IMPRESSION: No acute findings. Dictated by Aston Hartmann MD @ 09/08/2024 5:01:44 PM (Electronic Signature) ECG Data Attestation: I personally reviewed and interpreted this ECG as follows: (Normal sinus rhythm, 71 beats per minute. Poor R-wave progression anterior precordial leads but no active ST segment changes or T-wave changes.) Prior ECG tracings: not available for review Discharge Plan Discharge Clinical Impression: Upper respiratory infection, viral Patient Disposition: Home, Self-Care Condition: Stable Instructions: Upper Respiratory Infection (ED) Additional Instructions: Continue with symptom control with [id number] medicines as you have been. Rest, stay hydrated. If you feel you are not improving over the next 5-7 days, feel you are worsening or have further concerns at any point, please seek re-evaluation. Note provided for work. Prescriptions: No Action No Known Home Medications Follow Up/Referrals: Provider,Not a Local [Primary Care Provider] - Stand Alone Forms: [employer] Info Instructions
--- NOTE | 2024-09-08 16:09 | CRLHL7_ITS ---
For Patients: As a result of the Century Cures Act, medical imaging exams and procedure reports are released immediately into your electronic medical record. You may view this report before your referring provider. If you have questions, please contact your health care provider. INDICATION: Cough, pleuritic chest pain. TECHNIQUE: Chest 1 view. COMPARISON: None. FINDINGS: Unremarkable cardiomediastinal contours. No lung consolidation. No sign of pleural effusion. No pneumothorax. No acute osseous or soft tissue findings. IMPRESSION: No acute findings. Dictated by Aston Hartmann MD @ 09/08/2024 5:01:44 PM (Electronically Signed)
[2024-09-08 16:17] VITALS: BP 126/87; PULSE 70; RESP 16; O2SAT 98
--- OUTSIDE RECORDS SUMMARY | 2024-09-08 16:21 | XMS_ITS | Clinical Summary ---
Author Organization [facility] Address On license of [facility] [place] [address] Care Team Providers Care Assistant Professor Of Philosophy Name Role Phone Lashaun Braun DO Primary Care Provider [phone]- [phone] Allergies No known active allergies Medications naproxen (NAPROSYN) 500 mg tabletIndication s:Chronic right shoulder pain Take 1 Tablet (500 mg) by mouth every 12 hours if needed for Pain. 20 Tablet 1 12/07/2023 Active Active Problems No known active problems Encounters Date Type Department Care Team Description 07/21/2024 2:30 PM LAND RESOURCE SPECIALIST Phone Office Visit [facility] [address] [place] [address] Toma Romero LICSW Phone Visit; [facility] 07/21/2024 Travel 07/19/2024 1:30 PM LAND RESOURCE SPECIALIST Office Visit [facility] [address] [place] [address] Toma Romero LICSW [facility] Visit [...] age to complete this topic Care Teams Assistant Professor Of Philosophy Relationship Specialty Start Date End Date Lashaun Braun DO [address] [place], [place] [id number] PCP - General Family Practice 11/01/23
[2024-09-08 16:35] LABS: Basophils Percent Auto 0.5 % (0.0-3.0); Eosinophils Percent Auto 2.5 % (0.0-7.0); Hematocrit 39.4 % (33.0-51.0); Hemoglobin* 12.7 gm/dL (12.0-16.0); Lymphocytes Percent Auto 39.2 % (20-44); Mean Corpuscular HGB Conc 32 gm/dL (32-36); Mean Corpuscular Hemoglobin 29 pg (26-34); Mean Corpuscular Volume 89 fL (80-100); Monocytes Percent Auto 17.8 % (0.0-11.0); Platelet Count* 226 K/uL (140-440); RDW Coefficient of Variation % 13.4 % (11.5-15.5); Red Blood Count 4.41 m/uL (4.00-5.20); White Blood Count* 3.65 K/uL (4.50-11.00)
[2024-09-08 16:49] LABS: Chloride* 105 mmol/L (96-114); Potassium* 3.9 mmol/L (3.6-5.1); Sodium* 139 mmol/L (135-149)
[2024-09-08 16:52] LABS: Blood Urea Nitrogen* 18 mg/dL (5-24); Carbon Dioxide* 25 mmol/L (20-32); Creatinine* 0.7 mg/dL (0.5-1.5); Est. Creatinine Clearance* 89.56; Estimated Glomerular Filt Rate 116 ml/min
[2024-09-08 16:53] LABS: Anion Gap 9 mEq/L (7-15); Calcium* 9.3 mg/dL (8.4-10.6); Glucose* 85 mg/dL (60-115)
[2024-09-08 17:02] LABS: Slide Review Reflex No
[2024-09-08 17:07] LABS: Ur HCG Qualitative* Negative (Negative)
== END 2024-09-08 18:04 | disposition home or self-care (01) ==
PROVIDERS: Emergency Provider Family Medicine
DX: J06.9 Acute upper respiratory infection, unspecified (principal)
CPT/HCPCS: 36415; 71045; 80048; 81025; 84484; 85025; 87631; 87651; 93005; 99284

== ENCOUNTER 2024-10-05 23:30 | Emergency (ER) | payer OTHER, SELFPAY ==
[2024-10-05 23:36] VITALS: BP 120/78; PULSE 85; RESP 18; TEMP 36.8; O2SAT 99; BMI 32.6
--- NOTE | 2024-10-06 00:14 | ED_ITS ---
HPI - General Adult General Chief complaint: Head Injury/Pain Stated complaint: possible concussion Time Seen by Provider: 10/05/24 23:59 Source: patient Mode of arrival: ambulatory Limitations: no limitations History of Present Illness HPI narrative: 34-year-old female presents the ED 4 hours after she fell from standing height. A dog jumped up on her, causing her to fall backwards onto the ground, hitting her head on the kitchen floor. No intoxication. No elevated surface. She does not take any anticoagulants. She reports a mild headache and just feeling slightly off balance. Was worried about going to sleep after head injury. Did not try taking any Tylenol or ibuprofen for her headache. No vomiting. No visual change. No prior history of severe head injury. No history of seizure disorder or other neurological condition. No stroke-like symptoms or difficulty moving her extremities. Reports benign past medical history. No long-term health problems. No prescription medications, no allergies. Nonsmoker. ROS is notable for the generalized and neurological symptoms as described above only, otherwise denies times 12 systems. Related Data Home Medications ?Medication ?Instructions ?Recorded ?Confirmed No Known Home Medications 09/08/24 10/05/24 Allergies Allergy/AdvReac Type Severity Reaction Status Date / Time No Known Drug Allergies Allergy Verified 10/05/24 23:38 [facility] Medical History No significant past medical history Surgical History No significant past surgical history Social History Smoking Status: Never smoker Do you use any of these nicotine containing products: None Second hand tobacco smoke exposure: No How often do you have a drink containing alcohol: monthly or less How many standard drinks containing alcohol do you have on a typical day: 1 or 2 AUDIT-C Alcohol total score: 1 Non-prescribed substance use: marijuana (any form) Non-prescribed substance use details: varied usage service: No Exam Const: Vital Signs, click to edit/add: Vital Signs - 24 hr 10/05/24 23:36 Temperature 98.2 F Pulse Rate [Right Pulse Oximeter] 85 Respiratory Rate 18 Blood Pressure [Ri ght Upper Arm] 120/78 Pulse Oximetry 99 Oxygen Delivery Me thod Room Air Documenting provider has reviewed patient's vital signs: yes Common normals: no apparent distress and alert General appearance: cooperative and well kempt HENMT: Common normals: normocephalic and oropharynx normal Head and scalp: normocephalic Face and sinus: normal facial exam Mouth: oral and palatal mucosa normal Eye: Common normals: PERRL, EOMs intact bilaterally and conjunctivae normal General eye: normal appearance of both eyes Conjunctiva: conjunctiva(e) normal Pupil: PERRL Neck & C-Spine: Common normals: full ROM, no lymphadenopathy and no meningeal signs Cervical spine: cervical ROM normal; no pain with cervical ROM Resp: Common normals: normal respiratory effort, no use of accessory muscles and clear to auscultation bilaterally Effort & inspection: able to speak in complete sentences Auscultation: clear to auscultation bilaterally Cardio: Common normals: regular rate, regular rhythm, S1 normal heart sound, S2 normal heart sound and no murmurs Rate: regular rate Rhythm: regular rhythm Heart sounds: S1 normal and S2 normal GI: Common normals: Normal to inspection, nondistended, normoactive bowel sounds present, soft to palpation, non-tender, no hepatosplenomegaly and no masses Palpation: soft and no hepatosplenomegaly Extremity: Common normals: normal to inspection Neuro: Ronda Coma Scale: document GCS findings (15) Common normals: CN's II-XII intact bilaterally and moves all extremities Sensorium/orientation: alert Meningeal signs: no meningeal signs Coordination/balance: tandem gait normal, does not sway with eyes open and Normal rapid alternating movements of the distal upper extremity present (Neuro) Speech: speech normal Gait (neuro): normal gait Motor exam: strength 5/5 throughout, no tremor noted, muscle tone normal throughout and no movement abnormalities noted Coordination: Romberg test normal, tandem gait normal, does not sway with eyes open and rapid alternating movement UE normal Psych: Appearance: well kempt Activity/motor behavior: appropriate eye contact Mood and affect: euthymic mood Attention/concentration: attention grossly intact Memory/cognition: memory grossly intact Insight: insight good Judgement: judgment good Skin: Common normals: no rashes or lesions noted General skin exam: no rashes or lesions noted Course Course ED Course: Thirty for the male presenting with symptoms of very mild concussion 4 hours after head injury. No obvious signs of skull fracture, intracranial hemorrhage, neurological deficit or other alarm symptoms. Counseled patient on findings. Do not recommend cranial imaging. Rationale discussed. Recommended symptomatic treatment a mild headache with Tylenol and ibuprofen, dose is given in ED. patient is cleared to return to typical work duties later today as scheduled. Alarm symptoms reviewed that would warrant ED presentation including seizures, loss of consciousness, persistent vomiting, etc.. Okay to sleep including taking gentle sleep aids if needed. Symptoms should last 2-5 days. No heavy exertion recommended. Patient verbalizes understanding and agreement, all questions answered. Vital Signs Vital signs: Initial Vital Signs Temperature 98.2 F 10/05/24 23:36 Temperature Source Temporal Artery Scan 10/05/24 23:36 Pulse Rate 85 10/05/24 23:36 Respiratory Rate 18 10/05/24 23:36 Blood Pressure 120/78 10/05/24 23:36 Blood Pressure Mean 92 10/05/24 23:36 Blood Pressure Position Sitting 10/05/24 23:36 Pulse Oximetry 99 10/05/24 23:36 Oxygen Delivery Method Room Air 10/05/24 23:36 Vital Signs Temperature 98.2 F 10/05/24 23:36 Pulse Rate 85 10/05/24 23:36 Respiratory Rate 18 10/05/24 23:36 Blood Pressure 120/78 10/05/24 23:36 Pulse Oximetry 99 10/05/24 23:36 Oxygen Delivery Method Room Air 10/05/24 23:36 Temperature 98.2 F 10/05/24 23:36 Pulse Rate 85 10/05/24 23:36 Respiratory Rate 18 10/05/24 23:36 Blood Pressure 120/78 10/05/24 23:36 Pulse Oximetry 99 10/05/24 23:36 Oxygen Delivery Method Room Air 10/05/24 23:36 Medications Administered Medications: Discontinued Medications Generic Name Dose Route Start Last Admin Trade Name Robinsonq PRN Reason Stop Dose Admin Acetaminophen 1,000 mg 10/06/24 00:14 10/06/24 00:21 Acetaminophen 500 Mg Tablet PO 10/06/24 00:15 1,000 mg ONCE ONE Administration Ibuprofen 600 mg 10/06/24 00:14 10/06/24 00:20 Ibuprofen 200 Mg Tablet PO 10/06/24 00:15 600 mg ONCE ONE Administration Discharge Plan Discharge Clinical Impression: Mild closed head injury Patient Disposition: Home, Self-Care Condition: Stable Instructions: Head Injury (DC) Additional Instructions: As we discussed, there are no signs of major head injury. I would recommend Tylenol 1000 mg every 6 hours and or ibuprofen 600 mg every 6 hours for the mild headache. Mild sensitivity to light, mild nausea, fatigue and mild dizziness should be expected for the next few days. Try to get plenty of sleep, drink plenty of water, avoid alcohol for the next week. He should return to the emergency department if you have neurological changes that her stroke-like in nature, seizure, loss of consciousness per, persistent vomiting or other red flags. It is perfectly okay for you to sleep and return to work. Activity Level: No Restrictions Discharge Diet: Regular Prescriptions: No Action No Known Home Medications Follow Up/Referrals: Provider,Not a Local [Primary Care Provider] - Stand Alone Forms: [employer] Info Instructions
[2024-10-06] MEDS: IBUPROFEN 200 MG TABLET 600 MG PO (00:20)
[2024-10-06] MEDS: ACETAMINOPHEN 500 MG TABLET 1000 MG PO (00:21)
--- OUTSIDE RECORDS SUMMARY | 2024-10-06 00:26 | XMS_ITS | Clinical Summary ---
Author Organization [facility] Address [facility] [place] [address] Care Team Providers Care Incendiary Powder Mixer Name Role Phone Lashaun Braun DO Primary Care Provider [phone]- [phone] Allergies No known active allergies Medications naproxen (NAPROSYN) 500 mg tabletIndication s:Chronic right shoulder pain Take 1 Tablet (500 mg) by mouth every 12 hours if needed for Pain. 20 Tablet 1 12/07/2023 Active Active Problems No known active problems Encounters Date Type Department Care Team Description 07/21/2024 2:30 PM WOOD REPATCHER Phone Office Visit [facility] [address] [place] [address] Toma Romero LICSW Phone Visit; [facility] 07/21/2024 Travel 07/19/2024 1:30 PM WOOD REPATCHER Office Visit [facility] [address] [place] [address] Toma Romero LICSW [facility] Visit [...] 02/26/2017 COVID-19 vaccine series ( season) 2024 Depression screening for age 12+ 10/29/2024 10/30/19 Influenza Vaccine (Season Ended) 2025 Pneumococcal series for age 6-49 Aged Out No longer eligible based on patient's age to complete this topic Care Teams Incendiary Powder Mixer Relationship Specialty Start Date End Date Lashaun Braun DO [address] [place], [place] [id number] PCP - General Family Practice 11/01/23
== END 2024-10-06 00:30 | disposition home or self-care (01) ==
PROVIDERS: Emergency Provider Family Medicine
DX: S09.90XA Unspecified injury of head, initial encounter (principal); W18.30XA Fall on same level, unspecified, initial encounter
CPT/HCPCS: 99283; A9270

== ENCOUNTER 2024-12-07 18:37 | Emergency (ER) | payer OTHER, SELFPAY ==
[2024-12-07 18:47] VITALS: BP 131/88; PULSE 73; RESP 18; TEMP 36.4; O2SAT 97; BMI 31.5
--- NOTE | 2024-12-07 20:25 | PM.EN ---
Chart Event Note Time Seen by Provider: 20:20 Date Seen: 12/07/24 Chart Event Note: Assisting ER: Patient in waiting room to be seen for return to work note. Has her menses, was feeling poorly and unable to work this morning. Back to baseline and hoping to return to work tomorrow, unable to do so without a work note. Denies any chest pain or shortness of breath, does not feel that she needs any medications or treatment. Vital signs reviewed and within normal limits Patient is walking and speaking normally, nontoxic in appearance. Work note provided, left with partner in stable condition.
[2024-12-07 20:56] VITALS: BP 131/88; PULSE 73; RESP 18; TEMP 36.4
--- OUTSIDE RECORDS SUMMARY | 2024-12-07 20:57 | XMS_ITS | Clinical Summary ---
Author Organization [employer] [facility] Address [facility] [place] [address] Care Team Providers Care Vp Production Name Role Phone Lashaun Braun DO Primary Care Provider [phone]- [phone] Allergies No known active allergies Medications naproxen (NAPROSYN) 500 mg tabletIndication s:Chronic right shoulder pain Take 1 Tablet (500 mg) by mouth every 12 hours if needed for Pain. 20 Tablet 1 12/07/2023 Active Active Problems No known active problems Social History Tobacco Use Types Packs/Day Years [...] C screening for ag e 18-79 2008 Hepatitis B series for 19+ ( 1 of 3 - 19+ 3-dose series) 2009 Tetanus booster 2010 Pap test for age 21-65 2011 BMI (ht and wt on same day) for age 18+ 02/26/2018 02/26/2017 COVID-19 vaccine series ( season) 2024 Depression screening for age 12+ 10/29/2024 10/30/19 Influenza Vaccine (Season Ended) 2025 Pneumococcal series for age 6-49 Aged Out No longer eligible based on patient's age to complete this topic Care Teams Vp Production Relationship Specialty Start Date End Date Lashaun Braun [place] [address] [address] PCP - General Family Practice 11/01/23
== END 2024-12-07 20:57 | disposition home or self-care (01) ==
LOC: ED 20:56
PROVIDERS: Emergency Provider Student in an Organized Health Care Education/Training Program
DX: Z02.89 Encounter for other administrative examinations (principal)
CPT/HCPCS: 99281

== ENCOUNTER 2024-12-21 10:28 | Emergency (ER) | payer MEDICAID, SELFPAY ==
--- OUTSIDE RECORDS SUMMARY | 2024-12-21 10:29 | XMS_ITS | Clinical Summary ---
Author Organization [employer] [facility] Address [facility] [place] [address] Care Team Providers Care Secondary English Teacher Name Role Phone Lashaun Braun DO Primary Care Provider +1- [phone] Allergies No known active allergies Medications naproxen [...] Health Maintenance Due Date Last Done Comments Tetanus booster 2001 HIV for age 15-65 2005 Hepatitis C screening for ag e 18-79 2008 Hepatitis B series for 19+ ( 1 of 3 - 19+ 3-dose series) 2009 Pap test for age 21-65 2011 BMI (ht and wt on same day) for age 18+ 02/26/2018 02/26/2017 COVID-19 vaccine series ( - 2023- season) 2024 Depression screening for age 12+ 10/29/2024 10/30/19 Influenza Vaccine (#1) 2025 Pneumococcal series for age 6-49 Aged Out No longer eligible based on patient's age to complete this topic Care Teams Secondary English Teacher Relationship Specialty Start Date End Date [place] [address] PCP - General Family Practice 11/01/23
[2024-12-21 10:31] VITALS: BP 119/75; PULSE 72; RESP 18; TEMP 36.4; O2SAT 98; BMI 31.6
--- NOTE | 2024-12-21 10:58 | ED.GENADULT ---
HPI - General Adult General Chief complaint: Psychiatric Problem/Disorder Stated complaint: Mental health Time Seen by Provider: 12/21/24 10:41 History of Present Illness HPI narrative: 34-year-old black female with a history of stress anxiety, was on sertraline in the past for presumed depression. She reports that she has had a lot of psychosocial stress at home. She has attempted to keep her home clean in its been tough to do so with her dog and other issues. She has felt overwhelmed at home and work. She comes in today, nonsuicidal, non homicidal, no hallucinations. Her affect is not flat. She does feel very stressed and feels she would like to talk to someone. No fevers, chills, chest pain or other medical issues. No drugs or alcohol. No excessive jeix-ekq-lafajfi medications. Related Data Home Medications ?Medication ?Instructions ?Recorded ?Confirmed No Known Home Medications 09/08/24 12/21/24 Allergies Allergy/AdvReac Type Severity Reaction Status Date / Time No Known Drug Allergies Allergy Verified 12/21/24 10:42 Review of Systems Status of ROS: Reports: 6 or more systems reviewed and unremarkable except as noted in History and below [facility] Medical History No significant past medical history Surgical History No significant past surgical history Social History Smoking Status: Never smoker Do you use any of these nicotine containing products: None Second hand tobacco smoke exposure: No How often do you have a drink containing alcohol: monthly or less How many standard drinks containing alcohol do you have on a typical day: 1 or 2 AUDIT-C Alcohol total score: 1 Non-prescribed substance use: marijuana (any form) Non-prescribed substance use details: varied usage service: No Exam Narrative: Exam Narrative: Objective: Vital signs are within normal limits in general patient is no apparent distress Alert orient x3 No neurologic focality Mental status is appropriate, patient shows insight into situation, denies suicidal or homicidal ideation, denies hallucinations. Const: Vital Signs, click to edit/add: Vital Signs - 24 hr 12/21/24 10:31 Temperature 97.6 F Pulse Rate [Pulse Oximeter] 72 Respiratory Rate 18 Blood Pressure [Ri ght Upper Arm] 119/75 Pulse Oximetry 98 Oxygen Delivery Me thod Room Air Course Vital Signs Vital signs: Initial Vital Signs Temperature 97.6 F 12/21/24 10:31 Temperature Source Temporal Artery Scan 12/21/24 10:31 Pulse Rate 72 12/21/24 10:31 Respiratory Rate 18 12/21/24 10:31 Blood Pressure 119/75 12/21/24 10:31 Blood Pressure Mean 89 12/21/24 10:31 Blood Pressure Position Sitting 12/21/24 10:31 Pulse Oximetry 98 12/21/24 10:31 Oxygen Delivery Method Room Air 12/21/24 10:31 Vital Signs Temperature 97.6 F 12/21/24 10:31 Pulse Rate 72 12/21/24 10:31 Respiratory Rate 18 12/21/24 10:31 Blood Pressure 119/75 12/21/24 10:31 Pulse Oximetry 98 12/21/24 10:31 Oxygen Delivery Method Room Air 12/21/24 10:31 Temperature 97.6 F 12/21/24 10:31 Pulse Rate 72 12/21/24 10:31 Respiratory Rate 18 12/21/24 10:31 Blood Pressure 119/75 12/21/24 10:31 Pulse Oximetry 98 12/21/24 10:31 Oxygen Delivery Method Room Air 12/21/24 10:31 Medical Decision Making MDM Narrative Medical decision making narrative: 34-year-old female with psychosocial stress, history of possible depression. At this point appears stable, she is concerned about as well and will do urine test. Will get her up tele health mental assessment. At this point I do not think she needs hospitalization or transfer treatment, but needs mental health assessment. This will be accomplished. She will likely be discharged home, will let her have a couple of days off work. Will write a note to that effect. Recommend recheck per mental health recommendations. Addendum 11:37 a.m.: The patient met with tele health mental assessment they felt she is safe to go home. I recommend she follow up with regular doctor next couple of days. Will write off no work for 2 days. Her test is negative. Return if problems or concerns. I feel she is safe to go home as well. Return as needed as mention. Lab Data Labs: Lab Results 12/21/24 Range/Units Unknown Urine HCG, Qual Negative (Negative) Discharge Plan Discharge Clinical Impression: Psychosocial stressors Patient Disposition: Home w/ Parent or Adult Condition: Stable Additional Instructions: Off work for couple days, follow-up per mental health recommendations. Follow up with regular doctor in the next 2 days for reassessment and treatment planning. Activity Level: No Restrictions Discharge Diet: Regular Prescriptions: No Action No Known Home Medications Follow Up/Referrals: Provider,Not a Local [Primary Care Provider, Family Practice] Stand Alone Forms: [employer] Info Instructions
[2024-12-21 11:04] LABS: Ur HCG Qualitative* Negative (Negative)
--- NOTE | 2025-01-27 14:35 | PC.SOCIAL ---
Social work consult: door worker spoke with the pt this afternoon after receiving a social work consult for the pt from Dr. Bauer in the clinic. Pt states that she missed the deadline to enroll for health insurance through her work because of her own delay and now she has to wait until open enrollment in April to sign up for health insurance. Pt states that she has an appointment today at 3pm at [facility] [place] to get assistance looking into state health insurance, especially because she is now and is in need of care. Pt was thankful for the call, but is confident that she can get this insurance matter figured out on her own with help from the [facility] in [place]. Social work to follow-up as needed.
== END 2024-12-21 11:55 | disposition home or self-care (01) ==
PROVIDERS: Emergency Provider Family Medicine
DX: F32.A Depression, unspecified (principal); Z65.8 Other specified problems related to psychosocial circumstances
CPT/HCPCS: 81025; 99283; 99284

== ENCOUNTER 2024-12-22 06:30 | Outpatient (CLI) | payer MEDICAID, SELFPAY | END 2024-12-22 06:31 | disposition home or self-care (01) | LOC: AMB 12-23 09:28 | PROVIDERS: PCP Family Medicine; Visit Provider Family Medicine | DX: R07.89 Other chest pain (principal) | CPT/HCPCS: A0998 ==

== ENCOUNTER 2024-12-22 11:33 | Outpatient (CLI) | payer OTHER, SELFPAY | END 2024-12-22 11:34 | disposition home or self-care (01) | PROVIDERS: PCP Family Medicine; Visit Provider Family Medicine | DX: F41.0 Panic disorder [episodic paroxysmal anxiety] (principal); R53.83 Other fatigue; Z13.6 Encounter for screening for cardiovascular disorders; F32.A Depression, unspecified | CPT/HCPCS: 80053; 80061; 84443 ==

== ENCOUNTER 2025-01-29 09:50 | Emergency (ER) | payer MEDICAID, SELFPAY ==
--- OUTSIDE RECORDS SUMMARY | 2025-01-29 09:51 | XMS_ITS | Clinical Summary ---
Author Organization [employer] [facility] Address [facility] [place] [address] Care Team Providers Care Director Media Name Role Phone Lashaun Braun DO Primary Care Provider [phone]- [phone] Allergies No known active allergies Medications naproxen [...] age to complete this topic Care Teams Director Media Relationship Specialty Start Date End Date [place] [address] PCP - General Family Practice 11/01/23
[2025-01-29 09:56] VITALS: BP 111/71; PULSE 73; RESP 16; TEMP 36.9; O2SAT 98; BMI 33.3
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
--- NOTE | 2025-01-29 10:20 | CRLHL7_ITS ---
For Patients: As a result of the Century Cures Act, medical imaging exams and procedure reports are released immediately into your electronic medical record. You may view this report before your referring provider. If you have questions, please contact your health care provider. INDICATION: Vaginal bleeding in early . LMP: 12/08/2024. DELIA by LMP: 09/14/2025. Estimated gestational age based on LMP: Seven weeks 3 days. TECHNIQUE: A transvaginal study was performed with grayscale images of the uterus and adnexa. There has been limited color Doppler of the maternal adnexae. FINDINGS: There is a single living intrauterine gestation. [place]-rump length measures 3 mm corresponding to an estimated gestational of 5 weeks 6 days. Mean sac diameter measures 1.0 cm. cardiac activity is confirmed a heart rate of 140 beats per minute. There is a 3.1 mm yolk sac. There is a subchorionic hemorrhage measuring approximately 2.4 x 0.3 x 3.6 cm. Both maternal ovaries appear normal. IMPRESSION: Estimated gestational age based on LMP: Seven weeks and 3 days. DELIA based on LMP: 09/14/2025. Estimated gestational age based on ultrasound: Five weeks 6 days. DELIA based on ultrasound: 09/25/2025. Small subchorionic hemorrhage. heart rate is somewhat slow at 114 BPM. Dictated by Sushant Pemberton MD @ 01/29/2025 12:39:41 PM (Electronically Signed)
[2025-01-29 10:45] LABS: Hematocrit* 36.3 % (33.0-51.0); Hemoglobin* 12.0 gm/dL (12.0-16.0); Immature Granulocytes Abs Auto 0.01 K/uL (0.00-0.30); Immature Granulocytes Pct Auto 0.2 %; Mean Corpuscular HGB Conc 33 gm/dL (32-36); Mean Corpuscular Hemoglobin 29 pg (26-34); Mean Corpuscular Volume 89 fL (80-100); RDW Coefficient of Variation % 13.5 % (11.5-15.5); Red Blood Count* 4.10 m/uL (4.00-5.20); White Blood Count* 5.50 K/uL (4.50-11.00)
[2025-01-29 10:52] LABS: Lymphocytes Absolute Auto 1.00 K/uL (0.90-2.90); Slide Review Reflex No
[2025-01-29 12:00] VITALS: BP 128/78
[2025-01-29 12:06] LABS: HCG Quantitative* 16408.00 mIU/mL
== END 2025-01-29 12:13 | disposition home or self-care (01) ==
PROVIDERS: Emergency Provider Emergency Medicine; PCP Family Medicine
DX: O46.8X1 Other antepartum hemorrhage, first trimester (principal); Z3A.01 Less than 8 weeks gestation of pregnancy; J30.2 Other seasonal allergic rhinitis
CPT/HCPCS: 36415; 76817; 84702; 85025; 99284

== ENCOUNTER 2025-02-02 23:31 | Emergency (ER) | payer MEDICAID, SELFPAY ==
--- NOTE | 2025-02-02 23:34 | CRLHL7_ITS ---
For Patients: As a result of the Century Cures Act, medical imaging exams and procedure reports are released immediately into your electronic medical record. You may view this report before your referring provider. If you have questions, please contact your health care provider. INDICATION: First trimester , bleeding. TECHNIQUE: Ultrasound OB pelvis transvaginal. Real-time laura-scale imaging of the pelvis was performed. COMPARISON: None. FINDINGS: Intrauterine gestation: Single. heart activity (bpm): 121 beats per minute. [place]-rump length: 0.8 cm. Estimated ultrasound age: 6 weeks 5 days. DELIA by ultrasound: 09/24/2025. Yolk sac: Normal. Perigestational hemorrhage: Subchorionic hemorrhage measuring 1.8 x 1.0 x 1.5 cm. Ovaries and adnexa: Not visualized due to overlying bowel gas. Suspicious pelvic fluid collections: None. IMPRESSION: Single viable intrauterine . Subchorionic hemorrhage measuring up to 1.8 cm. Heart rate of 121 beats per minute, which is within normal limits. Dictated by Otis Landaverde MD @ 02/03/2025 12:40:53 AM (Electronically Signed)
--- OUTSIDE RECORDS SUMMARY | 2025-02-02 23:34 | XMS_ITS | Clinical Summary ---
Author Organization [employer] Address [facility] [place] [address] Care Team Providers Care Dental Office Receptionist Name Role Phone Lashaun Braun DO Primary Care Provider +1- [phone] Allergies No known active allergies Medications naproxen [...] age to complete this topic Care Teams Dental Office Receptionist Relationship Specialty Start Date End Date Lashaun Braun [place] [address] PCP - General Family Practice 11/01/23
--- NOTE | 2025-02-02 23:36 | ED.PREGNANCY ---
HPI - General Time Seen by Provider: 23:36 Date Seen: 02/02/25 Chief complaint: Vaginal Bleeding Stated complaint: 8wks , vaginal bleeding Time Seen by Provider: 02/02/25 23:35 Source: patient Mode of arrival: ambulatory Limitations: no limitations History of Present Illness HPI Narrative: 34-year-old G2 P 0010 at 8 weeks gestation by LMP November 28 who presents today with vaginal bleeding and lower abdominal pain. She was seen 4 days ago with some spotting but no pain, ultrasound at that time showed 5+ 6 weeks gestation not concordant with dates. Patient had continued spotting but now has had some heavier bleeding today along with some cramping. She denies nausea, vomiting, diarrhea. No fevers or chills. Says bleeding is still less than. . Related Data Previous Rx's ?Medication ?Instructions ?Recorded fluticasone propionate 50 2 spray intranasal QDAY #10 mL 01/27/25 mcg/actuation nasal spray,suspension (Flonase Allergy Relief) Held on 02/02/25. Instructions: pt states she is not taking sertraline 25 mg tablet 25 mg PO QDAY #90 tabs 01/27/25 Held on 02/02/25. Instructions: pt states she is not taking Allergies Allergy/AdvReac Type Severity Reaction Status Date / Time No Known Drug Allergies Allergy Verified 02/02/25 23:44 [facility] Medical History (Updated 02/03/25 @ 00:43 by Marcellus Monteiro MD) PTSD (post-traumatic stress disorder) ?F43.10 - Post-traumatic stress disorder, unspecified (ICD-10) Panic attack ?F41.0 - Panic disorder [episodic paroxysmal anxiety] (ICD-10) Anxiety, generalized ?F41.1 - Generalized anxiety disorder (ICD-10) Depression ?F32.A - Depression, unspecified (ICD-10) No significant past medical history Surgical History (Updated 12/22/24 @ 11:47 by Selena Bauer MD) No history of previous surgery Family History Mother Sister Anxiety disorder Sister Depression Mother Sister Breast cancer Aunt, Onset Age: 35 Lung cancer Mother, Onset Age: 58 Pulmonary embolism Sister, Onset Age: 37 Social History (Updated 01/27/25 @ 06:22 by Selena Bauer MD) Narrative: Lives with fijennifer?e, works at [employer], no kids, dog Shadow. Femi Hughes Lifetime nonsmoker Vapes marijuana 4 times month Rare alcohol use No illegal drug use What is your current living situation?: I presently have a place to live Problems where you live: pests, such as bugs, ants, or mice, mold, lack of heat and water leaks In the past 12 months, utilities in danger of being shut off: no In past 12 months, lack of transportation kept you from medical appts, meetings, work, or getting things needed for daily living: no In the past 12 mos, have been you worried that your food would run out before you had money to buy more?: often true In the past 12 mos, the food you bought just didn't last and you didn't have money to buy more?: often true Smoking Status: Never smoker Do you use any of these nicotine containing products: None Second hand tobacco smoke exposure: No How often do you have a drink containing alcohol: never AUDIT-C Alcohol total score: 0 Non-prescribed substance use: denies use How often does anyone, including family, friends and others, physically hurt you: never How often does anyone, including family, friends and others, insult or talk down to you: sometimes How often does anyone, including family, friends and others, threaten you with harm: never How often does anyone, including family, friends and others, scream or curse at you: rarely service: No Health Related Social Needs: Inadequate housing (Z59.1), food insecurity (Z59.41) and Other personal risk factors, not elsewhere classified (Z91.89) Exam Narrative: Exam Narrative: General: Well-developed and well-nourished, no acute distress Head: Atraumatic and normocephalic Eyes: Pupils are equal reactive, extraocular motions intact, conjunctiva clear ENT: External nose and ears are normal, posterior pharynx without erythema or exudate Neck: No midline cervical tenderness, full spontaneous range of motion the neck, trachea midline, no adenopathy Heart: Regular rate and rhythm no murmurs or thrills Lungs: Clear to auscultation bilaterally without wheezes or crackles Abdomen: Soft, suprapubic tenderness, nondistended with active bowel sounds Musculoskeletal: No tenderness, deformity, or edema Neurologic: Awake, alert, and oriented x3, no gross focal neurologic deficits, cranial nerves intact as tested Psych: Mood and affect are appropriate Skin: No rashes Const: Vital Signs, click to edit/add: Vital Signs - 24 hr 02/02/25 23:40 Temperature 98.6 F Pulse Rate [Left P ulse Oximeter] 71 Respiratory Rate 19 Blood Pressure [Ri ght Upper Arm] 120/77 Pulse Oximetry 98 Oxygen Delivery Me thod Room Air Course Course ED Course: Reviewed most recent emergency department visit from January 29 when patient had an ultrasound was demonstrated intrauterine measuring 5+ 6 weeks with heart rate 114, has her 1st OB check on February 10. Patient presents today with low abdominal cramping and vaginal bleeding which is heavier than when she was seen a couple days ago. Has passed some clots but no definite tissue. On exam here, vital is stable on appears generally comfortable. Suprapubic tenderness. Given slow heart rate a last visit as well as subchorionic hemorrhage and size dates discordance, concern for miscarriage. Labs ordered and will repeat ultrasound. Reevaluation(s) Time of Reevaluation #1: 00:41 Reevaluation #1: Ultrasound demonstrates due to at 6+ 5 weeks with heart rate 121, persistent subchorionic hemorrhage. Updated patient with findings and plan, stable for discharge with follow-up with lockstitch sleeve setter as scheduled. Vital Signs Vital signs: Initial Vital Signs Temperature 98.6 F 02/02/25 23:40 Temperature Source Temporal Artery Scan 02/02/25 23:40 Pulse Rate 71 02/02/25 23:40 Respiratory Rate 19 02/02/25 23:40 Blood Pressure 120/77 02/02/25 23:40 Blood Pressure Mean 91 02/02/25 23:40 Blood Pressure Position Sitting 02/02/25 23:40 Pulse Oximetry 98 02/02/25 23:40 Oxygen Delivery Method Room Air 02/02/25 23:40 Vital Signs Temperature 98.6 F 02/02/25 23:40 Pulse Rate 71 02/02/25 23:40 Respiratory Rate 19 02/02/25 23:40 Blood Pressure 120/77 02/02/25 23:40 Pulse Oximetry 98 02/02/25 23:40 Oxygen Delivery Method Room Air 02/02/25 23:40 Temperature 98.6 F 02/02/25 23:40 Pulse Rate 71 02/02/25 23:40 Respiratory Rate 19 02/02/25 23:40 Blood Pressure 120/77 02/02/25 23:40 Pulse Oximetry 98 02/02/25 23:40 Oxygen Delivery Method Room Air 02/02/25 23:40 MDM - OB/Uterine Contractions Lab Data Labs: Lab Results 02/02/25 Range/Units 00:00 Urine HCG, Qual POSITIVE H (Negative) Discharge Plan Discharge Clinical Impression: Intrauterine , Subchorionic hemorrhage Patient Disposition: Home, Self-Care Condition: Stable Instructions: Subchorionic Hemorrhage (ED), at 7 to 10 Weeks (ED) Additional Instructions: You can take Tylenol for your abdominal pain. You may also use warm packs on the low abdomen to help with cramping. You will likely continue have bleeding and spotting. Follow-up with your lockstitch sleeve setter as scheduled. Prescriptions: No Action sertraline 25 mg tablet 25 mg PO QDAY Qty: 90 0RF fluticasone propionate [Flonase Allergy Relief] 50 mcg/actuation spray,suspension 2 spray intranasal QDAY Qty: 10 3RF Rx Instructions: administer into each nostril Follow Up/Referrals: Selena Bauer MD [Primary Care Provider, Family Practice] Stand Alone Forms: [employer] Info Instructions
[2025-02-02 23:40] VITALS: BP 120/77; PULSE 71; RESP 19; TEMP 37; O2SAT 98; BMI 23.9
[2025-02-03 00:09] LABS: Ur HCG Qualitative* POSITIVE (Negative)
--- OUTSIDE RECORDS SUMMARY | 2025-02-03 00:34 | XMS_ITS | Clinical Summary ---
Author Organization [email or web address] Address [facility] [place] [address] Care Team Providers Care Pier Master Name Role Phone Lashaun Braun DO Primary Care Provider +1- [phone] Allergies No known active allergies Medications naproxen [...] age to complete this topic Care Teams Pier Master Relationship Specialty Start Date End Date [place]asha[place] [address] PCP - General Family Practice 11/01/23
[2025-02-03 01:09] LABS: Hematocrit* 36.9 % (33.0-51.0); Hemoglobin* 12.3 gm/dL (12.0-16.0); Immature Granulocytes Abs Auto 0.01 K/uL (0.00-0.30); Immature Granulocytes Pct Auto 0.2 %; Lymphocytes Absolute Auto 2.83 K/uL (0.90-2.90); Mean Corpuscular HGB Conc 33 gm/dL (32-36); Mean Corpuscular Hemoglobin 29 pg (26-34); Mean Corpuscular Volume 88 fL (80-100); RDW Coefficient of Variation % 13.3 % (11.5-15.5); Red Blood Count* 4.20 m/uL (4.00-5.20); White Blood Count* 6.55 K/uL (4.50-11.00)
[2025-02-03 01:14] LABS: Slide Review Reflex No
[2025-02-03 03:03] LABS: HCG Quantitative* 31320.00 mIU/mL
== END 2025-02-03 01:25 | disposition home or self-care (01) ==
PROVIDERS: Emergency Provider Family Medicine; PCP Family Medicine
DX: O20.8 Other hemorrhage in early pregnancy (principal); Z3A.08 8 weeks gestation of pregnancy
CPT/HCPCS: 36415; 76817; 81025; 84702; 85025; 99283; 99284

== ENCOUNTER 2025-02-10 10:40 | Outpatient (CLI) | payer MEDICAID, SELFPAY ==
[2025-02-10 15:38] LABS: Chlamydia DNA Amplified* NOT DETECTED (No Detected); GC DNA Amplified* NOT DETECTED (No Detected)
[2025-02-11 23:56] LABS: HPV Source Cervix
[2025-02-17 08:10] LABS: Pap Test Digital Imaging Done
== END 2025-02-10 10:41 | disposition home or self-care (01) ==
PROVIDERS: PCP Family Medicine; Visit Provider Physician Assistant
DX: Z34.81 Encounter for supervision of other normal pregnancy, first trimester (principal); Z67.10 Type A blood, Rh positive
CPT/HCPCS: 76801; 76817; 83020; 83021; 85660; 86592; 86703; 86704; 86706; 86762; 86787; 86803; 86850; 86900; 86901; 87086; 87340; 87491; 87591; 87624; 87625; 88141; 88142; 88175

== ENCOUNTER 2025-03-10 10:03 | Outpatient (CLI) | payer MEDICAID, SELFPAY | END 2025-03-10 10:04 | disposition home or self-care (01) | PROVIDERS: PCP Family Medicine; Visit Provider Advanced Practice Midwife | DX: Z34.92 Encounter for supervision of normal pregnancy, unspecified, second trimester (principal) | CPT/HCPCS: 82565; 82570; 84156; 84450; 84460; 84520 ==

== ENCOUNTER 2025-04-06 08:59 | Outpatient (CLI) | payer OTHER, MEDICAID, SELFPAY | END 2025-04-06 09:00 | disposition home or self-care (01) | LOC: AMB 04-10 05:06 | PROVIDERS: PCP Family Medicine; Visit Provider Family Medicine | DX: O26.892 Other specified pregnancy related conditions, second trimester (principal); R07.89 Other chest pain; Z3A.15 15 weeks gestation of pregnancy | CPT/HCPCS: A0425; A0427 ==

== ENCOUNTER 2025-04-06 09:20 | Emergency (ER) | payer OTHER, SELFPAY ==
[2025-04-06] VITALS (10 sets, daily range): BP systolic 113–118; BP diastolic 72–83; PULSE 70–90; RESP 7–18; TEMP 36.1; O2SAT 97–99; BMI 33.8
--- OUTSIDE RECORDS SUMMARY | 2025-04-06 09:27 | XMS_ITS | Clinical Summary ---
Author Organization [facility] Address [facility] [place] [address] Care Team Providers Care Fitness Director Name Role Phone Lashaun Braun DO Primary Care Provider +1- [phone] Allergies No known active allergies Medications naproxen [...] 2009 Pap test for age 21-65 2011 HPV series for age 9-45 (1 - 3-dose SCDM series) 2017 BMI (ht and wt on same day) for age 18+ 02/26/2018 02/26/2017 Depression screening for age 12+ 10/29/2024 10/30/19 24 COVID-19 vaccine series ( season) 2025 Influenza Vaccine (#1) 2025 RSV vaccine for adults or (1 - 1-dose 75+ series) 2065 Pneumococcal series for age 6-49 Aged Out No longer eligible based on patient's age to complete this topic Care Teams Fitness Director Relationship Specialty Start Date End Date Lashaun Braun DO [address] [place] [address] PCP - General Family Practice 11/01/23
--- NOTE | 2025-04-06 09:38 | ED.GENADULT ---
HPI - General Adult General Chief complaint: Chest Pain Stated complaint: Chest pain Time Seen by Provider: 04/06/25 09:38 History of Present Illness HPI narrative: BIBA from work. 15 weeks . P2000 . Was at work on Thursday and was exposed to Ammonia. Today while briskly walking started having chest pain with some SOB. Initally reported 7/10 pain. 325 of ASA given by EMS and pain was brought to a 3/10. Has recently been dx with hypertension in . OB hugo tomorrow. 35-year-old woman presenting to emergency department with concern of chest discomfort beginning around some difficulty breathing and chemical exposure at work. Amplified nausea as well. No vomiting vomiting. Arrives with fiancee. They inform me that ammonia has been particularly noticeable along with other chemicals. Has been having difficulty over the last couple of days. Sounds like there is a ventilation problem currently. Currently 15 weeks . reportedly going well. Today while at work then began to have some tingling in her nose and then throat. Than having some difficulty breathing. And subsequently developed this chest discomfort. No rashes noted. Chest discomfort is now gone at the time of this interview. Still with some nausea it feeling a little lightheaded. Exposure concern involves ammonium carbonate, ammonia chloride, ammonium hydroxide and water. Related Data Home Medications ?Medication ?Instructions ?Recorded ?Confirmed [id number] 3 fatty no.1 27 cap PO 02/10/25 04/07/25 mg-1 mg-300 mg capsule Allergies Allergy/AdvReac Type Severity Reaction Status Date / Time No Known Drug Allergies Allergy Verified 04/07/25 09:26 [facility] Medical History (Updated 04/10/25 @ 14:21 by Elzbieta Whitney MD) PTSD (post-traumatic stress disorder) ?F43.10 - Post-traumatic stress disorder, unspecified (ICD-10) Panic attack ?F41.0 - Panic disorder [episodic paroxysmal anxiety] (ICD-10) Anxiety, generalized ?F41.1 - Generalized anxiety disorder (ICD-10) Depression ?F32.A - Depression, unspecified (ICD-10) No significant past medical history Surgical History (Updated 12/22/24 @ 11:47 by Selena Bauer MD) No history of previous surgery Family History Mother Sister Anxiety disorder Sister Depression Mother Sister Breast cancer Aunt, Onset Age: 35 Lung cancer Mother, Onset Age: 58 Pulmonary embolism Sister, Onset Age: 37 Social History (Updated 02/14/25 @ 12:48 by Nurys Cruz PA-C) Narrative: Lives with ruth, 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 [employer] Lifetime nonsmoker Vapes marijuana 4 times month Rare alcohol use No illegal drug use What is your current living situation?: I presently have a place to live Problems where you live: pests, such as bugs, ants, or mice, mold, lack of heat and water leaks In the past 12 months, utilities in danger of being shut off: no In past 12 months, lack of transportation kept you from medical appts, meetings, work, or getting things needed for daily living: no In the past 12 mos, have been you worried that your food would run out before you had money to buy more?: often true In the past 12 mos, the food you bought just didn't last and you didn't have money to buy more?: often true Smoking Status: Never smoker Do you use any of these nicotine containing products: None Second hand tobacco smoke exposure: No How often do you have a drink containing alcohol: never AUDIT-C Alcohol total score: 0 Non-prescribed substance use: denies use How often does anyone, including family, friends and others, physically hurt you: never How often does anyone, including family, friends and others, insult or talk down to you: sometimes How often does anyone, including family, friends and others, threaten you with harm: never How often does anyone, including family, friends and others, scream or curse at you: rarely service: No Health Related Social Needs: Inadequate housing (Z59.1), food insecurity (Z59.41) and Other personal risk factors, not elsewhere classified (Z91.89) Exam Narrative: Exam Narrative: A pleasant. Calm. Little tremulous. Breathing easily. Lungs are clear. Heart in regular rate and rhythm. Oropharynx without evidence of swelling or lesions. Heart in regular rate and rhythm. Abdomen is soft little tender in the suprapubic area. Appropriately gravid. Extremities are well perfused without edema. Various tattoos but no apparent rashes. Const: Vital Signs, click to edit/add: Vital Signs - 24 hr 04/06/25 09:31 04/06/25 09:32 04/06/25 09:43 Temperature 97.0 F L Pulse Rate 76 70 Pulse Rate [Left P ulse Oximeter] 79 Respiratory Rate 7 L 7 L 18 Blood Pressure 118/83 Blood Pressure [Le ft Upper Arm] 118/83 Pulse Oximetry 98 99 98 Oxygen Delivery Me thod Room Air 04/06/25 09:45 04/06/25 09:47 04/06/25 09:51 Temperature Pulse Rate Pulse Rate [Left P ulse Oximeter] Respiratory Rate 11 L 13 Blood Pressure 114/72 Blood Pressure [Le ft Upper Arm] Pulse Oximetry 99 97 Oxygen Delivery Me thod 04/06/25 10:00 04/06/25 10:02 04/06/25 10:15 Temperature Pulse Rate Pulse Rate [Left P ulse Oximeter] Respiratory Rate 13 16 13 Blood Pressure 113/81 Blood Pressure [Le ft Upper Arm] Pulse Oximetry 98 Oxygen Delivery Me thod 04/06/25 11:55 Temperature Pulse Rate Pulse Rate [Left P ulse Oximeter] 90 Respiratory Rate 16 Blood Pressure Blood Pressure [Le ft Upper Arm] 114/78 Pulse Oximetry 98 Oxygen Delivery Me thod Room Air Documenting provider has reviewed patient's vital signs: yes Course Vital Signs Vital signs: Initial Vital Signs Pulse Rate 76 04/06/25 09:31 Respiratory Rate 7 L 04/06/25 09:31 Blood Pressure 118/83 04/06/25 09:31 Blood Pressure Mean 94 04/06/25 09:31 Pulse Oximetry 98 04/06/25 09:31 Vital Signs Pulse Rate 76 04/06/25 09:31 Respiratory Rate 7 L 04/06/25 09:31 Blood Pressure 118/83 04/06/25 09:31 Pulse Oximetry 98 04/06/25 09:31 Temperature 97.0 F L 04/06/25 09:43 Pulse Rate 90 04/06/25 11:55 Respiratory Rate 16 04/06/25 11:55 Blood Pressure 114/78 04/06/25 11:55 Pulse Oximetry 98 04/06/25 11:55 Oxygen Delivery Method Room Air 04/06/25 11:55 Medications Administered Medications: Discontinued Medications Generic Name Dose Route Start Last Admin Trade Name Freq PRN Reason Stop Dose Admin Sodium Chloride 1,000 mls @ 1,000 mls/hr 04/06/25 09:50 04/06/25 10:25 0.9 % Sodium Chloride 1000 Ml IV 04/06/25 10:49 1,000 mls/hr .Q1H ONE Administration Ondansetron HCl 4 mg 04/06/25 09:51 04/06/25 10:23 Ondansetron 2 Mg/Ml Inj IVP 04/06/25 09:52 4 mg ONCE ONE Administration Medical Decision Making MDM Narrative Medical decision making narrative: Initial vitals look good. Will continue to monitor on oximetry. Check blood chemistries and urine tox for any concerning metabolites. Suspect that anxiety over this experience did play a role in some of presentation and possible chest discomfort here today. I do not think this is primary cardiac event. But will continue to monitor rhythm. Initial EKG is reassuring Perhaps there was some bronchospasm? Did contact poison Control and reviewed inhaled potential exposure. Humidified air/oxygen recomended if symptomatic. Reassuring labs. Continued to do well over time of monitoring in the ED and requesting to go home. No further recommendations from poison Control other than in the more acute phase exposure, humidified air/oxygen can be helpful. You might try sleeping under the mist of a cool mist humidifier. A steamy shower might help clean up. Of course take care not to become lightheaded with this. Will just need to avoid exposure to this going forward. I have written a work note. Return for persistent, increased shortness of breath or worsening chest pain. Medical Records Medical records reviewed: Yes I reviewed the patient's medical records Lab Data Lab results reviewed: Yes I reviewed the patient's lab results Labs: Lab Results 04/06/25 04/06/25 Range/Units 10:20 10:35 Hgb 11.8 L (12.0-16.0) gm/dL VBG pH 7.388 (7.32-7.43) VBG pCO2 37 L (40-50) mmHG VBG pO2 33.6 (25-47) mmHG VBG HCO3 22 (21-28) mmol/L Sodium 133 L (135-149) mmol/L Potassium 4.1 (3.6-5.1) mmol/L Chloride 105 (96-114) mmol/L Carbon Dioxide 22 (20-32) mmol/L Anion Gap 6 L (7-15) mEq/L BUN 12 (5-24) mg/dL Creatinine 0.6 (0.5-1.5) mg/dL Estimated Creat Clear 103.51 Estimated GFR 120 ml/min Glucose 89 (60-115) mg/dL Calcium 8.6 (8.4-10.6) mg/dL Urine Color Yellow (Yellow) Urine Appearance Clear (Clear) Urine pH 6.0 (5.0-8.5) Ur Specific [place] 1.015 (1.000-1.030) Urine Protein Negative (Negative) Urine Glucose (UA) Negative (Negative) Urine Ketones Negative (Negative) Urine Blood Negative (Negative) Urine Nitrite Negative (Negative) Urine Bilirubin Negative (Negative) Urine Urobilinogen 0.2 (0.2-1.0) Ur Leukocyte Esterase Negative (Negative) Urine RBC 0-2 (0-2) Urine WBC 0-2 (0-5) Ur Squamous Epith Cells Few (None-Few) Urine Bacteria None (None) Urine Opiates Screen Negative (Negative) Ur Oxycodone Screen Negative (Negative) Urine Methadone Screen Negative (Negative) Ur Barbiturates Screen Negative (Negative) U Tricyclic Antidepress Negative (Negative) Ur Phencyclidine Scrn Negative (Negative) Ur Amphetamines Screen Negative (Negative) U Methamphetamines Scrn Negative (Negative) U Benzodiazepines Scrn Negative (Negative) Urine Cocaine Screen Negative (Negative) U Marijuana (THC) Screen POSITIVE A (Negative) Ur Drug Screen Comment See Note ECG Data Attestation: I personally reviewed and interpreted this ECG as follows: (Sinus rhythm at a rate of 72.) Discharge Plan Discharge Clinical Impression: Exposure to chemical inhalation, Chest pain Patient Disposition: Home w/ Parent or Adult Condition: Improved Additional Instructions: No further recommendations from poison Control other than in the more acute phase exposure, humidified air/oxygen can be helpful. You might try sleeping under the mist of a cool mist humidifier. A steamy shower might help clean up. Of course take care not to become lightheaded with this. Will just need to avoid exposure to this going forward. I have written a work note. Return for persistent, increased shortness of breath or worsening chest pain. Prescriptions: No Action [id number] 3 fatty no.1 27-1-300 mg capsule PO Follow Up/Referrals: Selena Bauer MD [Primary Care Provider, Family Practice] Stand Alone Forms: [email or web address] Info Instructions Discharge Comment: pt. gave me back the safety data sheets and said they are for the doctor Procedures ABG Interpretation ABG Results: 04/06/25 10:35 VBG pH 7.388 VBG pCO2 37 L VBG pO2 33.6 VBG HCO3 22
[2025-04-06] MEDS: ONDANSETRON 2 MG/ML inj 4 MG IVP (10:23)
[2025-04-06 10:27] LABS: Appearance Urine Clear (Clear)
[2025-04-06 10:37] LABS: Cannabinoid Screen Urine POSITIVE (Negative); Methamphetamines Screen Urine Negative (Negative); Tricyclic Antidepressant Urine Negative (Negative)
[2025-04-06 10:38] LABS: HCO3 VBG 22 mmol/L (21-28); PCO2 VBG 37 mmHG (40-50); PO2 VBG 33.6 mmHG (25-47); pH VBG 7.388 (7.32-7.43)
[2025-04-06 10:42] LABS: Hemoglobin* 11.8 gm/dL (12.0-16.0)
[2025-04-06 10:56] LABS: Chloride* 105 mmol/L (96-114); Potassium* 4.1 mmol/L (3.6-5.1); Sodium* 133 mmol/L (135-149)
[2025-04-06 10:59] LABS: Anion Gap 6 mEq/L (7-15); Blood Urea Nitrogen* 12 mg/dL (5-24); Calcium* 8.6 mg/dL (8.4-10.6); Carbon Dioxide* 22 mmol/L (20-32); Creatinine* 0.6 mg/dL (0.5-1.5); Est. Creatinine Clearance* 103.51; Estimated Glomerular Filt Rate 120 ml/min; Glucose* 89 mg/dL (60-115)
== END 2025-04-06 11:56 | disposition home or self-care (01) ==
PROVIDERS: Emergency Provider Family Medicine; PCP Family Medicine
DX: R07.9 Chest pain, unspecified (principal); R06.02 Shortness of breath; Z77.098 Contact with and (suspected) exposure to other hazardous, chiefly nonmedicinal, chemicals; Z3A.15 15 weeks gestation of pregnancy; Y99.0 Civilian activity done for income or pay
CPT/HCPCS: 36415; 80048; 80306; 81001; 82803; 85018; 94761; 96374; 99284; J2405; J7030

== ENCOUNTER 2025-04-10 12:41 | Emergency (ER) | payer OTHER, MEDICAID, SELFPAY ==
--- OUTSIDE RECORDS SUMMARY | 2025-04-10 12:43 | XMS_ITS | Clinical Summary ---
Author Organization [facility] Address [facility] [place] [address] Care Team Providers Care Crocheter Hand Name Role Phone Lashaun Braun DO Primary Care Provider +1- [phone] Allergies No known active allergies Medications naproxen [...] 12+ 10/29/2024 10/30/19 Influenza Vaccine (#1) 2025 RSV vaccine for adults or (1 - 1-dose 75+ series) 2065 Pneumococcal series for age 6-49 Aged Out No longer eligible based on patient's age to complete this topic Care Teams Crocheter Hand Relationship Specialty Start Date End Date [place]ashaun Braun [place] [address] PCP - General Family Practice 11/01/23
[2025-04-10 13:12] VITALS: BP 126/82; PULSE 67; RESP 18; TEMP 36.8; O2SAT 99; BMI 35.1
[2025-04-10 14:05] LABS: PCR FLU A Negative PCR FLU A (Negative); PCR FLU B Negative PCR FLU B (Negative); PCR RSV Negative PCR RSV (Negative); SARS PCR* Negative SARS-CoV-2 (Negative)
--- NOTE | 2025-04-10 14:33 | ED_ITS ---
HPI - General Adult General Date Seen: 04/10/25 Chief complaint: Unspecified Complaint, Adult Stated complaint: Chemical exposure at work--chest pain Time Seen by Provider: 04/10/25 14:06 History of Present Illness HPI narrative: Patient is a 35-year-old young woman, 15 weeks , here due to ongoing concerns about possible chemical exposure at work. 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 She was seen here last week after d eveloping symptoms of nasal burning, shortness of breath, chest pain. She had a tox screen was positive for marijuana otherwise negative. She had a normal hemoglobin. She says she went back to work today and feels she was re-exposed. She again developed burning in her nose, itching in her throat, shortness of breath. She said that she was given a note for work saying that she could not work in that area but her employer has not respected that. She comes in today primarily because she says they did not check the baby last time and she wants to make sure the baby is okay. She is also wondering if she can get ?lung tests to make sure that her lungs are okay, and wondering if there is any way to test the baby. She does have a history of anxiety, depression, panic, when I asked her if she was enjoying being she said it was ?exciting and terrifying. Her next OB appointment is next month on the . Related Data Home Medications ?Medication ?Instructions ?Recorded ?Confirmed POX-kbpi-DW-omega 3 fatty no.1 27 cap PO 02/10/2503/16 mg-1 mg-300 mg capsule Allergies Allergy/AdvReac Type Severity Reaction Status Date / Time No Known Drug Allergies Allergy Verified 04/07/25 09:26 Review of Systems Status of ROS: Reports: 6 or more systems reviewed and unremarkable except as noted in History and below [facility] Medical History PTSD (post-traumatic stress disorder) ?F43.10 - Post-traumatic stress disorder, unspecified (ICD-10) Panic attack ?F41.0 - Panic disorder [episodic paroxysmal anxiety] (ICD-10) Anxiety, generalized ?F41.1 - Generalized anxiety disorder (ICD-10) Depression ?F32.A - Depression, unspecified (ICD-10) No significant past medical history Surgical History No history of previous surgery Family History Sister Pulmonary embolism, Onset Age: 37 Mother Lung cancer, Onset Age: 58 Depression Aunt Breast cancer, Onset Age: 35 Sister Depression Anxiety disorder Social History Narrative: Lives with ruth, 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 [employer] Lifetime nonsmoker Vapes marijuana 4 times month Rare alcohol use No illegal drug use What is your current living situation?: I presently have a place to live Problems where you live: pests, such as bugs, ants, or mice, mold, lack of heat and water leaks In the past 12 months, utilities in danger of being shut off: no In past 12 months, lack of transportation kept you from medical appts, meetings, work, or getting things needed for daily living: no In the past 12 mos, have been you worried that your food would run out before you had money to buy more?: often true In the past 12 mos, the food you bought just didn't last and you didn't have money to buy more?: often true Smoking Status: Never smoker Do you use any of these nicotine containing products: None Second hand tobacco smoke exposure: No How often do you have a drink containing alcohol: never AUDIT-C Alcohol total score: 0 Non-prescribed substance use: denies use How often does anyone, including family, friends and others, physically hurt you : never How often does anyone, including family, friends and others, insult or talk down to you: sometimes How often does anyone, including family, friends and others, threaten you with harm: never How often does anyone, including family, friends and others, scream or curse at you: rarely service: No Health Related Social Needs: Inadequate housing (Z59.1), food insecurity ( Z59.41) and Other personal risk factors, not elsewhere classified (Z91.89) Exam Narrative: Exam Narrative: Vital signs reviewed In general, alert, nontoxic young woman. Breathing easily. Head: Normocephalic, atraumatic. Eyes: Sclera clear. Pupils equal and reactive. ENT: Mucous membranes moist. Nares are clear, throat is normal. Neck: Supple without adenopathy. No stridor. Heart: Regular rate and rhythm without murmur. Lungs: Clear. No increased work of breathing, crackles or wheezes. Abdomen: Soft, nontender to palpation. Extremities: Well perfused, pulses intact. No significant edema. Neurologic: Alert, conversant. Speech fluent, face symmetric. Moves all extremities equally. Skin: Warm, dry well perfused. Affect: Normal. Const: Vital Signs, click to edit/add: Vital Signs - 24 hr 04/10/25 13:12 Temperature 98.3 F Pulse Rate [Right Pulse Oximeter] 67 Respiratory Rate 18 Blood Pressure [Ri ght Upper Arm] 126/82 Pulse Oximetry 99 Oxygen Delivery Me thod Room Air Course Course ED Course: I looked with a bedside ultrasound, baby is moving well, heart tones in the 120s. Tried to reassure her that there is no evidence of any problems with baby at this time. We discussed further testing, reviewed that if she wants to have some pulmonary function testing done that something we would need to have arranged through primary care. In terms of her work environment, it sounds as if an ER note was not adequate. Suggested that she talk with OB, if they think that it is of significant concern, they may be able to provide more significant restrictions. On the other hand, if they do not feel it is of concern perhaps that would help her to feel less worried about occasional exposure at work. She does not have any wheezing today, lungs are clear, O2 sats are 99%, respiratory rate is normal. I do not see a need a need for any specific intervention at this time. Return for worsening or new symptoms. A viral swab was done, this is negative for COVID, influenza, RSV. Vital Signs Vital signs: Initial Vital Signs Temperature 98.3 F 04/10/25 13:12 Temperature Source Temporal Artery Scan 04/10/25 13:12 Pulse Rate 67 04/10/25 13:12 Respiratory Rate 18 04/10/25 13:12 Blood Pressure 126/82 04/10/25 13:12 Blood Pressure Mean 96 04/10/25 13:12 Blood Pressure Position Sitting 04/10/25 13:12 Pulse Oximetry 99 04/10/25 13:12 Oxygen Delivery Method Room Air 04/10/25 13:12 Vital Signs Temperature 98.3 F 04/10/25 13:12 Pulse Rate 67 04/10/25 13:12 Respiratory Rate 18 04/10/25 13:12 Blood Pressure 126/82 04/10/25 13:12 Pulse Oximetry 99 04/10/25 13:12 Oxygen Delivery Method Room Air 04/10/25 13:12 Temperature 98.3 F 04/10/25 13:12 Pulse Rate 67 04/10/25 13:12 Respiratory Rate 18 04/10/25 13:12 Blood Pressure 126/82 04/10/25 13:12 Pulse Oximetry 99 04/10/25 13:12 Oxygen Delivery Method Room Air 04/10/25 13:12 Medical Decision Making Lab Data Labs: Lab Results 04/10/25 Range/Units 13:20 SARS-CoV-2 (PCR) Negative SARS-CoV-2 (Negative) Influenza Type A (PCR) Negative PCR FLU A (Negative) Influenza Type B (PCR) Negative PCR FLU B (Negative) RSV (PCR) Negative PCR RSV (Negative) Discharge Plan Discharge Clinical Impression: Exposure to chemical inhalation Patient Disposition: Home, Self-Care Condition: Stable Additional Instructions: As discussed, your exam is reassuring today. Baby looks good. I would suggest making an appointment with primary care if you would like to pursue pulmonary function testing. I would also discuss all of this with OB to get their thoughts, if indicated, they may be able to provide more stringent work restrictions. Prescriptions: No Action QPB-igef-CL-omega 3 fatty no.1 27-1-300 mg capsule PO Follow Up/Referrals: Selena Bauer MD [Primary Care Provider, Family Practice] Stand Alone Forms: [employer] Info Instructions
== END 2025-04-10 14:33 | disposition home or self-care (01) ==
LOC: ED 14:26
PROVIDERS: Emergency Provider Emergency Medicine; PCP Family Medicine
DX: T59.91XA Toxic effect of unspecified gases, fumes and vapors, accidental (unintentional), initial encounter (principal); Z3A.15 15 weeks gestation of pregnancy; Y99.0 Civilian activity done for income or pay
CPT/HCPCS: 87631; 99283; 99284

== ENCOUNTER 2025-05-03 08:43 | Outpatient (CLI) | payer MEDICAID, SELFPAY | END 2025-05-03 08:44 | disposition home or self-care (01) | LOC: US 08:45 | PROVIDERS: PCP Family Medicine; Visit Provider Obstetrics & Gynecology | DX: O09.522 Supervision of elderly multigravida, second trimester (principal); Z3A.19 19 weeks gestation of pregnancy | CPT/HCPCS: 76811 ==

== ENCOUNTER 2025-05-16 17:08 | Outpatient (CLI) | payer BC, SELFPAY | END 2025-05-16 17:09 | disposition home or self-care (01) | LOC: AMB 05-20 18:12 | PROVIDERS: PCP Family Medicine; Visit Provider Emergency Medicine Emergency Medical Services | DX: F41.9 Anxiety disorder, unspecified (principal) | CPT/HCPCS: A0998 ==

== ENCOUNTER 2025-06-10 06:31 | Outpatient (CLI) | payer BC, SELFPAY | END 2025-06-10 06:32 | disposition home or self-care (01) | LOC: AMB 06-12 00:03 | PROVIDERS: PCP Family Medicine; Visit Provider Family Medicine | DX: R06.09 Other forms of dyspnea (principal) | CPT/HCPCS: A0425; A0429 ==

== ENCOUNTER 2025-06-10 06:50 | Emergency (ER) | payer BC, SELFPAY ==
[2025-06-10] VITALS (11 sets, daily range): BP systolic 114–129; BP diastolic 79–96; PULSE 98–107; RESP 16–24; TEMP 37.4; O2SAT 97–98; BMI 38.4
--- OUTSIDE RECORDS SUMMARY | 2025-06-10 06:51 | XMS_ITS | Clinical Summary ---
Author Organization [facility] Address [facility] [place] [address] Care Team Providers Care Rapier Insertion Loom Fixer Name Role Phone Lashaun Braun DO Primary Care Provider [phone] Allergies No known active allergies Medications MedicationSigDispense QuantityRefillsLast FilledStart DateEnd DateStatus naproxen (NAPROSYN) 500 mg tablet Indications:Chronic right shoulder painTake 1 Tablet (500 mg) by mouth every 12 hours if needed for Pain. 20 Tablet ctive Active Problems No known active problems Encounters DateTypeDepartmentCare OabmSfgybfwdnsr56/05/2025Telephone [facility] [address] [place] [address] Lashaun Braun, Abstractfrom Last 3 Months Social History Tobacco UseTypesPacks/DayYears UsedDateSmoking Tobacco: NeverSmokeless Tobacco: Never Tobacco Cessation:Counseling Given: Not Answered Alcohol UseStandard Drinks/WeekCommentsYes0 (1 standard drink = 0.6 oz pure alcohol)1 time montly or lessPHQ-2AnswerDate RecordedPHQ-2 TOTAL SCORE5 10/30/2023Social ConnectionsAnswerDate RecordedDo you often feel lonely or isolated from those around you?Financial Resource StrainAnswerDate RecordedDifficulty of Paying Living Tbhvjzua520ifficulty of Paying Living Kizjcrbg716/17/2024Food InsecurityAnswerDate RecordedDo you worry your food will run out before you are able to buy more?Transportation NeedsAnswerDate RecordedDoes lack of transportation keep you from medical appointments?oes lack of transportation keep you from work, meetings or getting things that you need?Housing StabilityAnswerDate Recorded What is your housing situation today?UtilitiesAnswerDate RecordedDo you have trouble paying for utilities (for example, heat, electricity, water, phone)?regnantCommentsNoSex and Gender InformationValueDate Recorded Sex Assigned at BirthNot on fileLegal IbtEutdxj33/14/2017 9:25 PM CDTGender IdentityNot on fileSexual OrientationNot on file Last Filed Vital Signs Vital SignReadingTime TakenCommentsBlood Jpghyact541/8406 3:25 PM CDT Anxba844212/07/2023 3:25 PM EZQAkpwfviaxbo00.8 ??C (98.2 ??F)02/27/2017 12:22 AM CDTRespiratory Bspx404702/27/2017 12:22 AM CDTOxygen Trrlrrmnmk89%02/27/2017 12:22 AM CDTInhaled Oxygen Concentration--Sfyyoj35.9 kg (174 lb)12/07/2023 3:25 PM CDT Tfqdtz530.5 cm (5' 2)02/26/2017 9:28 PM CDTBody Mass Index31.8302/26/2017 9:28 PM CDT Plan of Treatment Health MaintenanceDue DateLast DoneCommentsTetanus amqvafn5003/27/2001HIV for age 15-6503/27/2005Hepatitis C screening for age 18-7903/27/2008Hepatitis B series for 19+ (1 of 3 - 19+ 3-dose series)2009Pap test for age 21-6503/27/2011 HPV series for age 9-45 (1 - 3-dose SCDM series)2017BMI (ht and wt on same day) for age 18+Depression screening for age 12+10/29/2024 10/30/2023OVID-19 vaccine series ( - 2024-26 season)2025Influenza Vaccine (#1)2025Pneumococcal series for age 6-49Aged OutNo longer eligible based on patient's age to complete this topic Care Teams Team MemberRelationshipSpecialtyStart DateEnd Date Lashaun Braun DO [address] [place] [address] PCP - GeneralFamily Practice11/01/23
--- OUTSIDE RECORDS SUMMARY | 2025-06-10 06:51 | XMS_ITS ---
Author Organization [facility] Produ ction (ClinicalSummary Clone) Address Unknown Care Team Providers Care Dinkey Operator Slate Name Role Phone Unavailable Primary Care Physician Unavailab le Results * [UNITY] ANEUPLOIDY NIPT Performed by: [email or web address] Component Value Range Date Fraction 7.0% 04/14/2025 03:32 am ICF48s74.2 MicrodeletionLOW RISK <1 in 03:32 am UTCSex Chromosome AneuploidyNOT AMAZWVBM60/31/2025 03:32 am UTCMonosomy XLOW RISK <1 in 03:32 am UTCTrisomy 13LOW RISK <1 in 10,000 04/14/2025 03:32 am UTCTrisomy 18LOW RISK <1 in 03:32 am UTC Trisomy 21LOW RISK <1 in 03:32 am UTCFetal HbhUUEP55/31/2025 03:32 am UTCPregnancy JoecuakcxHRUZCUGAD59/31/2025 03:32 am UTCFor detailed report, see PDFSee PDF04/14/2025 03:32 am UTC1 03:32 am UTC Social History Observation Value Start Date End Date
--- OUTSIDE RECORDS SUMMARY | 2025-06-10 06:51 | XMS_ITS ---
Author Organization [facility] (ClinicalSummary Clone) Address Unknown Care Team Providers Care Rn Med Surg Name Role Phone Unavailable Primary Care Physician Unavailab le Results * [UNITY] CARRIER SCREEN Performed by: [employer] Component Value Range Date Sickle Cell Disease/Beta-Thalassemia/Hemoglobino pathies carrier screen NEGATIVE 04/17/2025 06:04 am UTCAlpha-Thalassemia carrier zoucbbJVDAEXLR26/03/2025 06:04 am UTCCystic Fibrosis carrier xubvueNRRQRAYO20/03/2025 06:04 am UTCSpinal Muscular Atrophy carrier screenNEGATIVE 3 SMN1 copies, SNP ligjutp7104/17/2025 06:04 am UTCFor detailed report, see PDFSee PDF04/17/2025 06:04 am UTC106/17/2024 06:04 am UTC Social History Observation Value Start Date End Date
--- NOTE | 2025-06-10 07:16 | ED_ITS ---
HPI - General Adult General Chief complaint: Chest Pain Stated complaint: shortness of breath Time Seen by Provider: 06/10/25 07:00 History of Present Illness HPI narrative: CC: Shortness of Breath, Chest Pain pt. diagnosed with flu a yesterday. shortness of breath got worse overnight . pt. 25 weeks . pt. states the baby feels fine . ems gave 4 baby aspirin. denies n/v, diarrhea. [age] year old woman presenting to the emergency department with concern of shortness of breath some chest pain. Apparently was seen yesterday diagnosed with influenza a. She is currently 25 weeks . Feeling baby move. No abdominal pain. No bleeding. Received aspirin via EMS. She has not been vomiting. Feels achy all over. Does not have a history of reactive airway. Was given albuterol inhaler yesterday. It sounds as though there may have been some hipcup with getting Tamiflu prescription. She has not started it yet. Related Data Previous Rx's ?Medication ?Instructions ?Recorded PNV-iron 29 mg-folic acid 1 1 pkg PO DAILY #60 ea 02/06 bp-ngdtx-7-dha 200 mg oral combo pack albuterol 90 mcg-budesonide 80 2 inh inhalation ONCE P RN 06/09/25 mcg/actuation HFA aerosol inhaler shortness of breath #5.9 grams oseltamivir 75 mg capsule 75 mg PO BID 5 days #10 caps 06/09/25 Allergies Allergy/AdvReac Type Severity Reaction Status Date / Time No Known Drug Allergies Allergy Verified 06/10/25 07:07 Review of Systems Status of ROS: Reports: 6 or more systems reviewed and unremarkable except as noted in History and below [facility] Medical History Hypercholesterolemia (12/22/24) ?E78.00 - Pure hypercholesterolemia, unspecified (ICD-10) PTSD (post-traumatic stress disorder) ?F43.10 - Post-traumatic stress disorder, unspecified (ICD-10) Panic attack ?F41.0 - Panic disorder [episodic paroxysmal anxiety] (ICD-10) Anxiety, generalized ?F41.1 - Generalized anxiety disorder (ICD-10) Depression ?F32.A - Depression, unspecified (ICD-10) Surgical History No history of previous surgery Family History Sister Pulmonary embolism, Onset Age: 37 Mother Lung cancer, Onset Age: 58 Depression Aunt Breast cancer, Onset Age: 35 Sister Depression Anxiety disorder Social History Narrative: Lives with ruth, works as [employer] 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 [employer]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 [employer] Lifetime nonsmoker Vapes marijuana 4 times month Rare alcohol use No illegal drug use What is your current living situation?: I presently have a place to live Problems where you live: pests, such as bugs, ants, or mice, mold, lack of heat and water leaks In the past 12 months, utilities in danger of being shut off: no In past 12 months, lack of transportation kept you from medical appts, meetings, work, or getting things needed for daily living: no In the past 12 mos, have been you worried that your food would run out before you had money to buy more?: often true In the past 12 mos, the food you bought just didn't last and you didn't have money to buy more?: often true Smoking Status: Never smoker Do you use any of these nicotine containing products: None Second hand tobacco smoke exposure: No How often do you have a drink containing alcohol: never AUDIT-C Alcohol total score: 0 Non-prescribed substance use: denies use How often does anyone, including family, friends and others, physically hurt you : never How often does anyone, including family, friends and others, insult or talk down to you: sometimes How often does anyone, including family, friends and others, threaten you with harm: never How often does anyone, including family, friends and others, scream or curse at you: rarely service: No Health Related Social Needs: Inadequate housing (Z59.1), food insecurity (Z59.41) and Other personal risk factors, not elsewhere classified (Z91.89) Exam Narrative: Exam Narrative: Begins to appear anxious during interview. She is breathing easily. Oxygenating 90-100% on room air. There is trace upper airway end-expiratory wheezing but otherwise lungs sound clear. Oropharynx is moist nonerythematous. Heart in elevated rate and regular rhythm. Abdomen is appropriately gravid soft and nontender. Is well-perfused peripherally. Trace lower extremity edema. Const: Vital Signs, click to edit/add: Vital Signs - 24 hr 06/10/25 07:03 06/10/25 07:43 06/10/25 07:45 Temperature 99.4 F Pulse Rate Pulse Rate [Right Pulse Oximeter] 105 H Respiratory Rate 24 16 22 Blood Pressure Blood Pressure [Ri ght Upper Arm] 129/96 H Pulse Oximetry 98 Oxygen Delivery Me thod Room Air 06/10/25 08:00 06/10/25 08:15 06/10/25 08:30 Temperature Pulse Rate 101 H 107 H 98 Pulse Rate [Right Pulse Oximeter] Respiratory Rate 21 18 22 Blood Pressure Blood Pressure [Ri ght Upper Arm] Pulse Oximetry 97 98 98 Oxygen Delivery Me thod 06/10/25 08:45 06/10/25 08:47 06/10/25 09:00 Temperature Pulse Rate Pulse Rate [Right Pulse Oximeter] Respiratory Rate 20 20 Blood Pressure 114/79 Blood Pressure [Ri ght Upper Arm] Pulse Oximetry Oxygen Delivery Me thod 06/10/25 09:15 Temperature Pulse Rate Pulse Rate [Right Pulse Oximeter] Respiratory Rate 17 Blood Pressure Blood Pressure [Ri ght Upper Arm] Pulse Oximetry Oxygen Delivery Me thod Documenting provider has reviewed patient's vital signs: yes Course Vital Signs Vital signs: Initial Vital Signs Temperature 99.4 F 06/10/25 07:03 Temperature Source Temporal Artery Scan 06/10/25 07:03 Pulse Rate 105 H 06/10/25 07:03 Respiratory Rate 24 06/10/25 07:03 Blood Pressure 129/96 H 06/10/25 07:03 Blood Pressure Mean 107 H 06/10/25 07:03 Blood Pressure Position Sitting 06/10/25 07:03 Pulse Oximetry 98 06/10/25 07:03 Oxygen Delivery Method Room Air 06/10/25 07:03 Vital Signs Temperature 99.4 F 06/10/25 07:03 Pulse Rate 105 H 06/10/25 07:03 Respiratory Rate 24 06/10/25 07:03 Blood Pressure 129/96 H 06/10/25 07:03 Pulse Oximetry 98 06/10/25 07:03 Oxygen Delivery Method Room Air 06/10/25 07:03 Temperature 99.4 F 06/10/25 07:03 Pulse Rate 98 06/10/25 08:30 Respiratory Rate 17 06/10/25 09:15 Blood Pressure 114/79 06/10/25 08:47 Pulse Oximetry 98 06/10/25 08:30 Oxygen Delivery Method Room Air 06/10/25 07:03 Medications Administered Medications: Discontinued Medications Generic Name Dose Route Start Last Admin Trade Name Justice PRN Reason Stop Dose Admin Acetaminophen 1,000 mg 06/10/25 08:22 06/10/25 08:31 Acetaminophen 500 Mg Tablet PO 06/10/25 08:23 1,000 mg ONCE ONE Administration Sodium Chloride 1,000 mls @ 1,000 mls/hr 06/10/25 07:25 06/10/25 08:31 0.9 % Sodium Chloride 1000 Ml IV 06/10/25 08:24 Infused .Q1H ONE Infusion Oseltamivir Phosphate 75 mg 06/10/25 07:25 06/10/25 07:41 Oseltamivir Phosphate 75 Mg Capsule PO 06/10/25 07:26 75 mg ONCE ONE Administration Medical Decision Making MDM Narrative Medical decision making narrative: She does feel that she can use some IV fluids. We will be ordering acetaminophen and IV fluids. Understandably uncomfortable but I think symptoms are not inconsistent with early influenza and otherwise I think looks fairly well. Will also give dose of oseltamivir. On reassessment is eating chicken brought by significant other. She is concerned about wheeze that she taps her far upper chest. DuoNeb offer. On auscultation she does have more end-expiratory coarseness/wheeze than with evident prior. Maintaining though good oxygen saturation. Admits that has improvement in her achiness. One-view chest x-ray independently reviewed by me looks to be without infiltrate. No pneumothorax. Does have a prescription of oseltamivir that is being transferred between pharmacy per my conversation significant other. Will be getting a fresh prescription from [facility]. See patient discharge plan for further discussion Your vitals are reassuring here today. Stay well-hydrated. Can take up to 1000 mg of acetaminophen per dose. Consider sleeping under the mist of a cool mist humidifier. Prescribing oseltamivir from [facility]. Use your albuterol as prescribed. Be seen for increasing and persistent shortness of breath, increasing chest pain, uncontrolled fever. Medical Records Medical records reviewed: Yes I reviewed the patient's medical records ECG Data Attestation: I personally reviewed and interpreted this ECG as follows: (Sinus tachycardia at 110) Discharge Plan Discharge Clinical Impression: Influenza A, Myalgia, Wheeze Patient Disposition: Home w/ Parent or Adult Condition: Stable Additional Instructions: Your vitals are reassuring here today. Stay well-hydrated. Can take up to 1000 mg of acetaminophen per dose. Consider sleeping under the mist of a cool mist humidifier. Prescribing oseltamivir from [facility]. Use your albuterol as prescribed. Be seen for increasing and persistent shortness of breath, increasing chest pain, uncontrolled fever. Prescriptions: No Action albuterol-budesonide 90-80 mcg/actuation HFA aerosol inhaler 2 inh inhalation ONCE PRN (Reason: shortness of breath) Qty: 5.9 0RF Rx Instructions: as a single dose; may repeat up to 6 doses per day (12 inhalations) PNV no.50-xdrp-GM-omega-3-dha 29 mg iron- 1 mg-200 mg combo pack 1 pkg PO DAILY Qty: 60 3RF oseltamivir 75 mg capsule 75 mg PO BID 5 Days Qty: 10 0RF Follow Up/Referrals: Selena Bauer MD [Primary Care Provider, Family Practice] Stand Alone Forms: [employer] Info Instructions
--- NOTE | 2025-06-10 07:25 | CRLHL7_ITS ---
For Patients: As a result of the Century Cures Act, medical imaging exams and procedure reports are released immediately into your electronic medical record. You may view this report before your referring provider. If you have questions, please contact your health care provider. Indication: Chest pain, shortness of breath Technique: Chest 1 view. Comparison: Chest radiograph 09/08/2024. Findings/Impression: Cardiovascular and mediastinum: Heart size is mildly enlarged. Unremarkable mediastinum. Lungs and pleural space: Lungs are clear. No sign of infiltrate or mass. No sign of pleural effusion. No pneumothorax. Bones and soft tissues: No acute findings. Dictated by Pavithra Macias MD @ 06/10/2025 8:06:59 AM (Electronically Signed)
[2025-06-10] MEDS: OSELTAMIVIR PHOSPHATE 75 MG CAPSULE PO (07:41)
[2025-06-10] MEDS: ACETAMINOPHEN 500 MG TABLET 1000 MG PO (08:31)
[2025-06-10] MEDS: IPRAT-ALBUT 0.5-2.5 MG/3 ML NEB 1 NEB IH (09:49)
--- OUTSIDE RECORDS SUMMARY | 2025-06-11 02:02 | XMS_ITS | Clinical Summary ---
Author Organization [facility] Address [facility] [place] [address] Care Team Providers Care Adoption Worker Name Role Phone Lashaun Braun DO Primary Care Provider [phone]- [phone] Allergies No known active allergies Medications MedicationSigDispense QuantityRefillsLast FilledStart DateEnd DateStatus naproxen (NAPROSYN) 500 mg tablet Indications:Chronic right shoulder painTake 1 Tablet (500 mg) by mouth every 12 hours if needed for Pain. 20 Tablet ctive Active Problems No known active problems Encounters DateTypeDepartmentCare AvftSnrklpzwksg45/05/2025Telephone [facility] [address] [place] [address] Lashaun Braun, Abstractfrom Last 3 Months Social History Tobacco UseTypesPacks/DayYears UsedDateSmoking Tobacco: NeverSmokeless Tobacco: Never Tobacco Cessation:Counseling Given: Not Answered Alcohol UseStandard Drinks/WeekCommentsYes0 (1 standard drink = 0.6 oz pure alcohol)1 time montly or lessPHQ-2AnswerDate RecordedPHQ-2 TOTAL SCORE5 10/30/2023Social ConnectionsAnswerDate RecordedDo you often feel lonely or isolated from those around you?Financial Resource StrainAnswerDate RecordedDifficulty of Paying Living Aefyfbda759ifficulty of Paying Living Nnqfkucl815/17/2024Food InsecurityAnswerDate RecordedDo you worry your food will [...] Recorded Sex Assigned at BirthNot on fileLegal ThbRcreds15/14/2017 9:25 PM CDTGender IdentityNot on fileSexual OrientationNot on file Last Filed Vital Signs Vital SignReadingTime TakenCommentsBlood Nfvkxclj073/8406 3:25 PM CDT Wpvio468212/07/2023 3:25 PM SAOPaxizryvlzm84.8 ??C (98.2 ??F)02/27/2017 12:22 AM CDTRespiratory Emhs963702/27/2017 12:22 AM CDTOxygen Onywqurtpy26%02/27/2017 12:22 AM CDTInhaled Oxygen Concentration--Icyhyg37.9 kg (174 lb)12/07/2023 3:25 PM CDT Yxmsgm904.5 cm (5' 2)02/26/2017 9:28 PM CDTBody Mass Index31.8302/26/2017 9:28 PM CDT Plan of Treatment Health MaintenanceDue DateLast DoneCommentsTetanus casccov6603/27/2001HIV for age 15-6503/27/2005Hepatitis C screening for age [...] Date Lashaun Braun DO [address] [place] [address] PCP - GeneralFamily Practice11/01/23
== END 2025-06-10 10:44 | disposition home or self-care (01) ==
PROVIDERS: Emergency Provider Family Medicine; PCP Family Medicine
DX: J10.1 Influenza due to other identified influenza virus with other respiratory manifestations (principal); M79.10 Myalgia, unspecified site; R06.2 Wheezing; Z33.1 Pregnant state, incidental
CPT/HCPCS: 71045; 94640; 99284; A9270; J7030